=== PATIENT | female | born 1970 | race Caucasian/White ===

== ENCOUNTER 2016-04-22 21:37 | Emergency (ER) ==
[2016-04-22 22:03] VITALS: BP 113/70
== END 2016-04-22 22:44 | disposition left against medical advice (07) ==
LOC: P.ED 21:37
DX: R11.2 Nausea with vomiting, unspecified (principal); R19.7 Diarrhea, unspecified

== ENCOUNTER 2016-04-22 23:01 | Inpatient (IN) ==
--- NOTE | 2016-04-22 23:33 | PROVIDER DOCUMENTATION ---
Addendum entered and electronically signed by Jose De Jesus Warren Scribe 04/23/16 02:09 : Progress - CONSULTS/PCP/HOSPITALIST Notification #1 *Consult/PCP/Hospitalist*: DR BUSH Time Discussed: 02:08 Reason/Comments: DR ZACARIAS SPOKE WITH DR BUSH. DR BUSH WILL ADMIT. Consult Disposition: Admit Original Note: HPI-General Adult - General Chief Complaint: GI Bleed Stated Complaint: N/V/D, BLOOD IN STOOL Time Seen by Provider: 04/22/16 23:17 Source: patient Allergies/Adverse Reactions: Patient Allergies Allergy/AdvReac Type Severity Reaction Status Date / Time No Known Allergies Allergy Verified 04/22/16 22:09 Home Medications: Home Medication List Medication Instructions Recorded Confirmed Last Taken Type Ciprofloxacin HCl [Cipro] 500 mg PO BID 04/22/16 04/23/16 04/19/16 History Diphenoxylate/Atropine [Lomotil] 2.5 each PO Q6H PRN PRN 04/22/16 04/23/1604/22 09:00 History Hydrocodone Bit/Acetaminophen 1 each PO Q6H PRN PRN 04/22/16 04/23/16 04/22/16 21:00 History [Hydrocodon-Acetaminoph 7.5-325] Hyoscyamine [Levsin Drops] 0.125 mg PO DAILY 04/22/16 04/23/16 04/22/16 17:30 History Promethazine [Phenergan] 25 mg PO Q6H PRN PRN 04/22/16 04/23/16 04/22/16 14:30 History - History of Present Illness -Gen Adult Nature of Presenting Problems: 46 YOWF PRESENTS TO ED WITH C/O PT STATES N/V/D X 3 MONTHS. PT STATES LAST B/M WAS TODAY BROWN LOOKING BLOOD AND THEN BRIGHT RED BLOOD. PT STATES N/V OF BILE. PT STATES NO BLOOD PRODUCTS DUE TO ROMAN CATHOLIC. Location of Pain/Injury: reports: abdomen (EPIGASTRIC AND LLQ) Pain Radiation: reports: epigastric Quality of Pain: reports: aching Severity: reports: moderate Onset/Duration: reports: other (3 MONTHS) Timing: reports: still present Context/Activities at Onset: reports: light activity Modifying Factors: improves with: nothing Associated Symptoms: reports: nausea, vomiting Similar Symptoms Previously?: No Recently seen or treated by another doctor?: No Review of Systems - Adult - REVIEW OF SYSTEMS - ADULT Constitutional: denies: chills, fever Eyes: reports: no symptoms reported Ears, Nose, Mouth & Throat: reports: no symptoms reported Cardiovascular: denies: chest pain, palpitations, syncope Respiratory: denies: cough, shortness of breath, wheezing Gastrointestinal: reports: abdominal pain, diarrhea, nausea, rectal bleeding, vomiting Genitourinary: reports: no symptoms reported Musculoskeletal: denies: back pain, neck pain Integumentary: reports: no symptoms reported Neurological: denies: dizziness/vertigo, headache/migraines, syncope Psychiatric: reports: no symptoms reported Endocrine: reports: no symptoms reported Hematologic/Lymphatic: reports: no symptoms reported Allergic/Immunologic: reports: no symptoms reported All Other Systems: Reviewed and Negative Past History - Adult - PAST MEDICAL HISTORY-ADULT Review of Records: reports: Nursing Assessment Review, Medications Reviewed - IMMUNIZATION STATUS Childhood Immunizations: See Nurse Assessment Flu Vaccine: See Nurse Assessment - SOCIAL HISTORY Smoking: quit greater than 1 year, cigarettes Substance Use: denies Alcohol Use Frequency: never Living Situation: family Physical Exam-General - CONSTITUTIONAL General Appearance: alert, moderate distress - EYES Eyes: PERRL/EOMI, pink conjunctivae - HEAD, EARS, NOSE, MOUTH & THROAT HENMT: normocephalic/atraumatic, other (DRY MUCOUS MEMBRANES) - NECK Neck: non-tender, full range of motion, supple - RESPIRATORY Respiratory: chest non-tender, lungs clear, normal breath sounds - CARDIOVASCULAR Cardiovascular: normal peripheral pulses, tachycardia - GASTROINTESTINAL (ABDOMEN) Abdominal Exam: normal bowel sounds, soft, tenderness (LLQ) - LYMPHATIC Lymphatic: no adenopathy - MUSCULOSKELETAL Back Exam: normal inspection, no CVA tenderness, no vertebral tenderness Extremity: normal range of motion, non-tender - SKIN Integumentary: normal color, normal turgor, warm/dry - NEUROLOGIC Neurologic: grossly normal - PSYCHIATRIC Psych/Mental Status: oriented x 3 Progress - PLAN OF CARE/RESULTS Progress/Plan/Lab Results: Laboratory Tests 04/22/16 04/22/16 04/22/16 23:17 23:17 23:17 WBC 16.41 H RBC 4.61 Hgb 13.3 Hct 39.1 MCV 84.8 MCH 28.9 MCHC 34.0 RDW Std Deviation 12.8 Plt Count 469 H MPV 8.6 Immature Gran % (Auto) 0.9 H Neut % (Auto) 64.2 Lymph % (Auto) 14.7 L [place] % (Auto) 12.4 H Eos % (Auto) 7.2 Baso % (Auto) 0.6 Immature Gran # (Auto) 0.14 H Neut # (Auto) 10.53 H Lymph # (Auto) 2.42 [place] # (Auto) 2.04 H Eos # (Auto) 1.18 H Baso # (Auto) 0.10 PT 12.4 H INR 1.22 PTT (Actin FS) 30.6 Sodium 135 L Potassium 3.4 L Chloride 95 L Carbon Dioxide 26 Anion Gap 14 BUN 4 L Creatinine 0.6 Estimated GFR/1.73 m2 > 60 BUN/Creatinine Ratio 7 Glucose 124 H Calculated Osmolality 268 Calcium 7.7 L Total Bilirubin 0.48 AST 8 L ALT 6 L Alkaline Phosphatase 94 Total Protein 5.5 L Albumin 2.2 L Globulin 3.3 Albumin/Globulin Ratio 0.7 Orders Category Date Time Status Orthostatic Vital Signs NOW Care 04/22/16 23:18 Active Saline Loc DIRECTED Care 04/22/16 23:18 Active Vital Signs Order Q15M Care 04/22/16 23:[address] ABD/PELVIS W/ IV CONT ONLY [CT] Stat Exams 04/22/16 23:19 Ordered C DIFF TOXIN [STOOL] Stat Lab 04/22/16 23:28 Uncollected CBC WITH DIFF [HEME] Stat Lab 04/22/16 23:17 Completed CMP [COMPREHENSIVE METABOLIC PANEL] [CHEM] Stat Lab 04/22/16 23:17 Completed OCCULT BLOOD NON-FECES Stat Lab 04/22/16 23:18 Uncollected OCCULT BLOOD SCREENING [STOOL] Stat Lab 04/22/16 23:18 Uncollected PROTIME WITH INR [COAG] Stat Lab 04/22/16 23:17 Completed PTT [COAG] Stat Lab 04/22/16 23:17 Completed STOOL CULTURE [RM] Stat Lab 04/22/16 23:28 Uncollected TYPE & SCREEN [BBK] Stat Lab 04/22/16 23:17 Received 0.9% Sodium Chloride Inj [Ns] 1,000 ml Med 04/23/16 00:19 Active IV 999 mls/hr Hydromorphone [Dilaudid] Med 04/23/16 00:31 Discontinued 1 mg IV NOW ONE Ondansetron [Zofran] Med 04/23/16 00:31 Discontinued 4 mg IV NOW ONE Telemetry [OM.EQ] Routine Oth 04/22/16 23:18 Active Vital Signs - 24 hr 04/22/16 23:07 Temperature 98.4 F Pulse Rate 132 H Respiratory 18 Rate Blood Pressure 111/62 O2 Sat by Pulse 98 Oximetry - CT/MRI 1 CT Study: Abdomen, Pelvis CT Results: COLITIS Departure - Departure Time of Disposition Order: 01:35 DIAGNOSIS: Colitis, Lower GI bleed Abdominal pain Qualifiers: Abdominal location: unspecified location Qualified Code(s): R10.9 - Unspecified abdominal pain Disposition: ADMITTED INPATIENT 09 Certified Medical Emergency: Emergent Condition: Stable Additional Instructions: ED Follow Up Instructions: You have been treated by a care provider in the Emergency Department. These instructions are being provided to you so you can have an understanding of how to care for yourself upon discharge. Upon discharge from the Emergency Department, you are responsible for making arrangements for follow-up care by a physician of your choice. Take all prescribed medications as directed. Return to the Emergency Department immediately for any new or worsening symptoms. You may call the Physician Referral phone number at [phone] to obtain a list of Physicians who are taking new patients. Attestation - Scribe Verification/Attestation Scribe:: Jose De Jesus Warren Acting as Scribe for:: Jamie Zacarias Scribe documention review:: This chart was documented by a scribe and accurately reflects the service the provider performed and the decisions made by the provider.
[2016-04-23 00:07] LABS: BASO% 0.6 % (0.0-0.8); EOS# 1.18 X1000 (0.0-0.7); EOS% 7.2 % (0.0-10.0); HEMATOCRIT 39.1 % (37.0-47.0); HEMOGLOBIN 13.3 g/dL (12.0-16.0); IMM GRAN# 0.14 X1000 (0.0-0.04); IMM GRAN% 0.9 % (0.0-0.5); LYMPH# 2.42 X1000 (1.2-3.4); LYMPH% 14.7 % (20.5-51.1); MANUAL DIFF NEEDED? NO; MCH 28.9 PG (27-31); MCV 84.8 FL (81-99); MONO# 2.04 X1000 (0.11-0.59); MONO% 12.4 % (1.7-9.3); MPV 8.6 FL (7.4-10.4); NEUT% 64.2 % (42.2-75.2); PLT 469 X1000 (130-400); RBC 4.61 XMIL (4.2-5.4)
[2016-04-23] MEDS ORDERED: NS 1,000 ML IV ONE ×2 (00:19→02:22)
[2016-04-23 00:24] LABS: INR 1.22; PROTIME 12.4 Seconds (9.2-11.7); PTT 30.6 Seconds (22.0-36.0)
[2016-04-23] MEDS ORDERED: ZOFRAN IV ONE (00:31)
[2016-04-23] MEDS ORDERED: DILAUDID IV ONE ×2 (00:31→17:20)
[2016-04-23 00:33] LABS: AGAP 14; ALBUMIN 2.2 g/dL (3.5-5.0); ALKALINE PHOSPHATASE 94 U/L (32-104); BUN 4 mg/dL (8-22); CALCIUM 7.7 mg/dL (8.8-10.2); CHLORIDE 95 mmol/L (98-107); COSMO 268; GOT 8 U/L (10-30); GPT 6 U/L (10-36); POTASSIUM 3.4 mmol/L (3.5-5.1); SODIUM 135 mmol/L (136-145); TCO2 26 mmol/L (25-35); TOTAL BILIRUBIN 0.48 mg/dL (0.20-1.00); TOTAL PROTEIN 5.5 g/dL (6.3-8.3)
[2016-04-23] MEDS ORDERED: LEVAQUIN 500 MG/D5W 100 ML IV ONE (01:02)
[2016-04-23] MEDS ORDERED: FLAGYL 500 MG/NS 100 ML IV ONE (01:02)
[2016-04-23] MEDS ORDERED: NS 1,000 ML ONE (02:17)
[2016-04-23] MEDS ORDERED: TYLENOL PO PRN (03:23)
[2016-04-23] MEDS ORDERED: MORPHINE IV PRN (03:23)
[2016-04-23] MEDS: NS 1,000 ML IV SCH ×2 (03:53→17:23)
[2016-04-23] MEDS: PROTONIX IV SCH (03:53)
[2016-04-23] MEDS: SODIUM CHLORIDE 0.9% INJ SCH (03:54)
[2016-04-23 04:08] LABS: BASO% 0.7 % (0.0-0.8); EOS# 1.19 X1000 (0.0-0.7); EOS% 8.6 % (0.0-10.0); HEMATOCRIT 33.8 % (37.0-47.0); HEMOGLOBIN 11.2 g/dL (12.0-16.0); IMM GRAN# 0.15 X1000 (0.0-0.04); IMM GRAN% 1.1 % (0.0-0.5); MANUAL DIFF NEEDED? YES; MCH 28.6 PG (27-31); MCHC 33.1 g/dL (33-37); MCV 86.2 FL (81-99); MONO# 1.63 X1000 (0.11-0.59); MONO% 11.8 % (1.7-9.3); MPV 8.3 FL (7.4-10.4); NEUT% 61.8 % (42.2-75.2); PLT 351 X1000 (130-400); RBC 3.92 XMIL (4.2-5.4)
[2016-04-23 04:15] LABS: BANDS 6 % (0-1); EOS 4 % (1-10); LYMPHS 14 % (21-51); MONO 10 % (1-9)
[2016-04-23] MEDS ORDERED: POTASSIUM CHLORIDE 20 MEQ/SWI 100 ML IV ONE ×2 (04:17→04:35)
[2016-04-23 04:21] LABS: AGAP 9; BUN 3 mg/dL (8-22); CALCIUM 6.9 mg/dL (8.8-10.2); CHLORIDE 101 mmol/L (98-107); COSMO 269; MAGNESIUM 1.6 mg/dL (1.5-2.7); POTASSIUM 3.3 mmol/L (3.5-5.1); SODIUM 136 mmol/L (136-145); TCO2 26 mmol/L (25-35)
[2016-04-23] MEDS ORDERED: POTASSIUM CHLORIDE 40 MEQ/SWI 100 ML IV ONE (04:34)
[2016-04-23] MEDS ORDERED: POTASSIUM CHLORIDE 20 MEQ/SWI 100 ML IV SCH (04:45)
[2016-04-23 05:13] LABS: URINE CULTURE NEEDED? NO; URINE MICRO REVIEW NEEDED? NO; URINE SOURCE CLEAN CATCH
[2016-04-23 05:15] LABS: BILIRUBIN URINE NEGATIVE (NEGATIVE); BLOOD URINE NEGATIVE (NEGATIVE); COLOR YELLOW; GLUCOSE URINE NEGATIVE (NEGATIVE); LEUKOCYTES URINE NEGATIVE (NEGATIVE); NITRITE URINE NEGATIVE (NEGATIVE); PH URINE 6.5; PROTEIN URINE NEGATIVE (NEGATIVE); SP GRAVITY URINE 1.041; TURBIDITY URINE CLEAR (CLEAR); UR EPITHELIAL CELLS <10 /HPF (<10); URINE BACTERIA NEGATIVE /HPF; URINE RBC <10 /HPF (<10); URINE WBC <10 /HPF (<10); UROBILINOGEN URINE NORMAL (NORMAL)
--- NOTE | 2016-04-23 06:41 | Diag Imaging Result Document ---
PROCEDURE NAME: CT ABD/PELVIS W/ IV CONT ONLY - 04/22/2016 CT ABDOMEN AND PELVIS WITH INTRAVENOUS CONTRAST. DOSE REDUCTION PROTOCOL. FINDINGS: The lower lungs are clear. Normal spleen, pancreas, adrenal glands, and gallbladder. There is fatty infiltration of the liver. Normal enhancement of the kidneys. No hydronephrosis. Normal aorta. There are several small para-aortic and paracaval lymph nodes. There is colonic wall thickening with pericolonic inflammation from the hepatic flexure continuing through the sigmoid colon into the anus. No free air. No abscess. Normal appendix. Mild thickening to the cecum although a portion of the ascending colon is not involved. Normal uterus. The left ovary is enlarged measuring approximately 4.1 x 5.8 cm and may contain a cyst measuring up to 3.5 cm. There is a tiny amount of free fluid in the pelvis. The urinary bladder is moderately distended and appears normal. IMPRESSION: 1. Colitis. 2. Enlarged left ovary. 3. Fatty infiltration of the liver. 4. Mildly prominent para-aortic lymph nodes. A preliminary report was given at 1:17 a.m. A typo on the preliminary report should have read splenic and hepatic granuloma. [facility]
--- NOTE | 2016-04-23 09:40 | HISTORY AND PHYSICAL ---
DATE AND TIME OF HISTORY AND PHYSICAL: April 23, 2016 at 0230. CHIEF COMPLAINT: Abdominal pain with nausea, vomiting, diarrhea. HISTORY OF PRESENT ILLNESS: Ms. Echols is a 46-year-old female who presents to the ER [facility] with complaints of abdominal pain with nausea and vomiting and bloody diarrhea for 3 months. The patient reports since January of 2016 that she has been having these symptoms and has been treated on 2 to 3 different occasions with antibiotics by physicians at [facility]. Patient reports that she does not have a primary care physician though has been seen by the surgeon, Dr. Gaona, at [facility] who did mention that he was planning to do a colonoscopy on her. Patient has taken most recently antibiotics of Levaquin and Cipro for treatment of her symptoms as well as most recently with Cipro for a diagnosed urinary tract infection. The patient does state that she has not been able to tolerate the Cipro orally. She reports that she has been having loose stools with loose, bloody stools for 3 months. She reports that the blood ranges in color from dark red to bright red at times. She describes her abdominal pain as constant and a gnawing type pain. She reports that drinking water makes it worse and that only pain medicines improve it. The patient denies any bloody or coffee ground emesis. She does report that she has had a low-grade fever at home with the highest reading at 100.5. She also reports that she generally just has not felt well. She denies any headache, dizziness, chest pain, shortness of breath, dysuria, or urinary frequency. She denies any pain, numbness, or tingling in extremities. Upon evaluation in the ER, the patient was found to have an elevated white blood cell count of 16.4. Given her history and current symptoms, a CT abdomen and pelvis was performed which showed moderate colonic wall thickening consistent with colitis. At this time, we will admit the patient for further treatment and evaluation of her colitis. REVIEW OF SYSTEMS: A 14-point review of systems was conducted with the patient and all were negative except for pertinent positives mentioned in above HPI. PAST MEDICAL HISTORY: Other than the patient's recent problems with her abdominal pain and nausea, vomiting, and diarrhea, she denies any past medical history. PAST SURGICAL HISTORY: Tonsillectomy. SOCIAL HISTORY: The patient reports that she is a former smoker and smoked from approximately the age of a teenager until she was 31. During this time she smoked approximately 2 packs per day. She denies any alcohol or illicit drug use. FAMILY HISTORY: The patient reports that there is a family history of diabetes though no other known medical problems. ALLERGIES: No known allergies. HOME MEDICATIONS: 1. Phenergan 25 mg p.o. q.6 hours p.r.n. 2. Levsin drops 0.125 mg p.o. daily. 3. Bosler 7.5 mg 1 p.o. q.6 hours p.r.n. for pain. 4. Lomotil 1 p.o. q.6 hours p.r.n. 5. Cipro 500 mg p.o. b.i.d. DIAGNOSTIC DATA: Laboratory results: White blood cell count 16.4, hemoglobin 13.3, hematocrit 39.1, platelet count 469. PT 12.4. INR 1.2. PTT 30.6. Sodium 135. Potassium 3.4. Chloride 95. Bicarbonate 26. BUN 4. Creatinine 0.6. Glucose 124. Calcium 7.7. Magnesium 1.6. Total bilirubin is 0.48. AST 8. ALT 6. Alkaline phosphatase 94. Albumin 2.2. CT abdomen and pelvis with IV contrast showed moderate colonic wall thickening consistent with colitis. Abnormal appearance of the left ovary, recommended comparison to previous or followup pelvic ultrasound was recommended. PHYSICAL EXAMINATION: VITAL SIGNS: Temperature 98.1, heart rate 95, respirations 15, blood pressure 116/67, oxygen saturation is 100% room air. GENERAL: Ms. Echols is a well-nourished, well-developed, pleasant 46-year-old female who is resting in the ER stretcher. She is in no acute distress, is awake, alert, and able to answer all questions appropriately. HEENT: Head is atraumatic, normocephalic. Pupils are equal, round, reactive to light, are 3 mm bilaterally and brisk. Subconjunctivae were slightly pale. Oral mucosa is moist. Oropharynx was clear. There were some white plaques noted to the patient's tongue as well as buccal mucosa. This was mild though it does appear that there is some oral candidiasis present. NECK: Supple. Trachea is midline. CARDIOVASCULAR: Patient has a normal S1, S2. No murmurs, gallops, or rubs appreciated with a sounds are clear to auscultation in bilateral soft upon palpation. noted upon palpation. MUSCULOSKELETAL: Patient has good range of motion in all noted. Pulse, motor, and sensory were intact in all extremities as well. Pedal pulses were 3 plus slightly pale lesions or sores noted. The patient did have decreased skin turgor noted. time and situation. Cranial nerves II through XII are grossly intact. ASSESSMENT: other infectious versus noninfectious for infectious process we will continue to rule out we have ordered stool studies and are awaiting those results at this time go ahead and place the patient on Flagyl 500 mg IV q.8 noninfectious. We will continue to rule out disease as well as inflammatory bowel disease. as well as CRP as well and are awaiting those results at this time. appreciate her evaluation and recommendation we have not been able to collect a we will hemodynamic status closely we will hold all anticoagulants and continue to follow. Fluid volume depletion. We will continue with fluid resuscitation with normal at 100 mL per hour times 2 L and continue to follow. Nausea, vomiting, diarrhea. We will treat the patient with Zofran for her nausea and vomiting and as previously mentioned we have ordered stool studies for further evaluation of her reported diarrhea. Oral candidiasis. For this, we have placed an order for nystatin suspension. The patient will be placed on the medical floor with telemetry. She will have vital signs q.6 h. She will have strict intake and output q.8 h. DVT prophylaxis will be provided with SCDs. GI prophylaxis will be provided with Protonix 40 mg IV q.[address] her on a clear liquid diet. We will repeat a CBC and BMP in the morning. The patient's potassium was slightly low at 3.4. We will give her IV potassium 20 mEq times 1 dose and we will reevaluate her potassium level. Further orders and recommendations pending hospital course, diagnostic studies, and physician evaluation. Dictated by NASIM Santos for John Ahuja MD
[2016-04-23] MEDS: FLAGYL 500 MG/NS 100 ML IV SCH ×2 (11:11→17:05)
[2016-04-23] MEDS: MYCOSTATIN SUSP PO SCH ×2 (11:22→18:13)
[2016-04-23] MEDS ORDERED: PREPARATION H SUPPOSITORY PR ONE (16:19)
[2016-04-24] MEDS: MYCOSTATIN SUSP PO SCH ×6 (00:36→21:16)
[2016-04-24] MEDS: FLAGYL 500 MG/NS 100 ML IV SCH ×3 (01:56→17:07)
[2016-04-24] MEDS: DILAUDID IV PRN ×3 (01:56→15:08)
[2016-04-24] MEDS: PROTONIX IV SCH (03:17)
[2016-04-24] MEDS: SODIUM CHLORIDE 0.9% INJ SCH (03:18)
[2016-04-24 07:23] LABS: BASO% 0.6 % (0.0-0.8); EOS# 1.26 X1000 (0.0-0.7); EOS% 10.1 % (0.0-10.0); HEMATOCRIT 30.6 % (37.0-47.0); HEMOGLOBIN 9.9 g/dL (12.0-16.0); IMM GRAN# 0.15 X1000 (0.0-0.04); IMM GRAN% 1.2 % (0.0-0.5); LYMPH# 1.94 X1000 (1.2-3.4); LYMPH% 15.6 % (20.5-51.1); MANUAL DIFF NEEDED? YES; MCH 28.2 PG (27-31); MCHC 32.4 g/dL (33-37); MCV 87.2 FL (81-99); MONO# 1.53 X1000 (0.11-0.59); MONO% 12.3 % (1.7-9.3); MPV 8.3 FL (7.4-10.4); NEUT% 60.2 % (42.2-75.2); PLT 343 X1000 (130-400); RBC 3.51 XMIL (4.2-5.4)
[2016-04-24 07:43] LABS: AGAP 9; ALBUMIN 1.5 g/dL (3.5-5.0); ALKALINE PHOSPHATASE 69 U/L (32-104); BUN 3 mg/dL (8-22); CALCIUM 7.6 mg/dL (8.8-10.2); CHLORIDE 100 mmol/L (98-107); COSMO 265; GOT 8 U/L (10-30); POTASSIUM 3.2 mmol/L (3.5-5.1); SODIUM 134 mmol/L (136-145); TCO2 25 mmol/L (25-35); TOTAL BILIRUBIN 0.31 mg/dL (0.20-1.00)
[2016-04-24 07:44] LABS: GPT < 5 U/L (10-36)
[2016-04-24 07:54] LABS: BANDS 24 % (0-1); EOS 2 % (1-10); LYMPHS 12 % (21-51); MONO 8 % (1-9)
[2016-04-24] MEDS ORDERED: PREPARATION H OINT TOP PRN (08:40)
[2016-04-24] MEDS: KLOR-CON PO ONE ×2 (09:44→09:58)
[2016-04-24] MEDS ORDERED: POTASSIUM CHLORIDE 20% LIQUID PO ONE (10:00)
[2016-04-24] MEDS: ZOFRAN IV PRN (14:09)
--- NOTE | 2016-04-24 14:48 | PROGRESS NOTE ---
DATE: 04/24/2016 SUBJECTIVE: This patient states that she is still having diarrhea, about 3 episodes today, and abdominal pain. She denies nausea and vomiting. No fever. No chills. The potassium is low, and I will replace the potassium. For now, I will keep this patient with liquid diet. OBJECTIVE: Vital Signs: Temperature 97.5 degrees, pulse 85, respiratory rate 18, blood pressure 96/59, O2 saturation 97% on room air. HEENT: Head normocephalic. No trauma. PERRLA. Neck: Supple. No JVD. No masses. Central trachea. Chest clear to auscultation. No wheezing. No rales. Cardiovascular: RRR. No murmurs. Abdomen is soft. Mild generalized tenderness. No rebound. Positive bowel sounds. Extremities: No edema. No clubbing. No cyanosis. Neurologic: The patient is alert, oriented x3. No focal neurological deficits. LABORATORY: WBC 12.4, hemoglobin 9.9, hematocrit 30.6, platelets 343,000. Bands 24. Sodium 134, potassium 3.2, chloride 100, bicarbonate 25. BUN 3, creatinine 0.5, glucose 105. Calcium 7.6. AST 8. ALT less than 5. Alkaline phosphatase 69. Albumin 1.5. ASSESSMENT AND PLAN: 1. Colitis. For now, we will continue with Flagyl. Apparently, this patient has been getting multiple times treatment with quinolone. We will wait for Gastroenterology Department for their recommendations. Probably, this patient has to be scoped. 2. Dehydration. I will continue with IV fluids. She looks hydrated today. 3. Nausea and vomiting. She is not having any nausea or vomiting at this moment. We will continue with the same management. 4. Diarrhea. This patient has been having diarrhea during this hospitalization. Today, she had 3 BMs. Will continue to monitor. 5. Hypokalemia. I will replace the potassium. 6. Normocytic anemia, probably multifactorial secondary to a chronic disease and blood loss. I will ask for anemia workup. 7. Hyperglycemia. This patient does not have a history of diabetes; will continue to monitor. Overall, this patient is doing a little bit better. She is still complaining of diarrhea, but she has been having diarrhea for the past 3-4 months. I am not sure about blood in the stools. Pending Gastroenterology evaluation.
[2016-04-24] MEDS ORDERED: MONISTAT-DERM 2% CREAM TOP ONE (15:35)
[2016-04-25] MEDS: FLAGYL 500 MG/NS 100 ML IV SCH ×3 (01:01→18:11)
[2016-04-25] MEDS: SODIUM CHLORIDE 0.9% INJ SCH (03:05)
[2016-04-25] MEDS: PROTONIX IV SCH (03:05)
[2016-04-25 07:40] LABS: BASO% 0.7 % (0.0-0.8); EOS# 1.44 X1000 (0.0-0.7); EOS% 11.3 % (0.0-10.0); HEMOGLOBIN 10.5 g/dL (12.0-16.0); IMM GRAN# 0.27 X1000 (0.0-0.04); IMM GRAN% 2.1 % (0.0-0.5); LYMPH# 1.92 X1000 (1.2-3.4); LYMPH% 15.1 % (20.5-51.1); MANUAL DIFF NEEDED? YES; MCH 28.5 PG (27-31); MCHC 32.8 g/dL (33-37); MCV 86.7 FL (81-99); MONO# 1.36 X1000 (0.11-0.59); MONO% 10.7 % (1.7-9.3); MPV 8.5 FL (7.4-10.4); NEUT% 60.1 % (42.2-75.2); PLT 379 X1000 (130-400); RBC 3.69 XMIL (4.2-5.4)
[2016-04-25 08:10] LABS: AGAP 7; ALBUMIN 1.6 g/dL (3.5-5.0); ALKALINE PHOSPHATASE 75 U/L (32-104); BUN 5 mg/dL (8-22); CALCIUM 7.3 mg/dL (8.8-10.2); CHLORIDE 101 mmol/L (98-107); COSMO 266; GOT 7 U/L (10-30); GPT 6 U/L (10-36); IRON SATURATION 30 %; POTASSIUM 3.8 mmol/L (3.5-5.1); SODIUM 134 mmol/L (136-145); TCO2 26 mmol/L (25-35); TIBC 82 ug/dL; TOTAL BILIRUBIN 0.27 mg/dL (0.20-1.00); TOTAL IRON 25 ug/dL (49-151); TOTAL PROTEIN 4.1 g/dL (6.3-8.3); UNBOUND IRON 57 ug/dL (112-346)
[2016-04-25 08:13] LABS: EOS 7 % (1-10); LYMPHS 12 % (21-51); MONO 1 % (1-9)
[2016-04-25 08:36] LABS: FERRITIN 213 ng/mL (13-150)
[2016-04-25] MEDS: MYCOSTATIN SUSP PO SCH ×4 (09:08→21:15)
[2016-04-25] MEDS: ZOFRAN IV PRN ×3 (13:14→23:17)
[2016-04-25] MEDS: FOLIC ACID PO SCH (13:14)
--- NOTE | 2016-04-25 13:27 | PROGRESS NOTE ---
DATE: 04/25/2016 SUBJECTIVE: This patient states that she is feeling better. She is not complaining about pain, nausea or vomiting at this moment. She is tolerating liquids. Gastroenterology Department evaluated this patient, and apparently they will perform endoscopy tomorrow. OBJECTIVE: Vital signs: Temperature is 98.1, pulse 82, respiratory rate 16, blood pressure 98/59, oxygen saturation is 98% on room air. HEENT: Head is normocephalic and atraumatic. PERRLA. Neck: Supple. No JVD. No masses. Central trachea. Chest: Clear to auscultation. No wheezing or rales. Cardiovascular: Regular rate and rhythm. No murmurs. Abdomen: Soft. Mild generalized tenderness. No rebound. Positive bowel sounds. Extremities: No edema, no clubbing, no cyanosis. Neurologic: The patient is alert and oriented x3. No focal neurological deficits. DIAGNOSTIC DATA: WBC is 12.7, hemoglobin 10.5, hematocrit 32, platelets 379. Sodium is 134, potassium 3.8, chloride 101, bicarbonate 26, BUN is 5, creatinine 0.5, glucose 104, calcium 7.3. Vitamin B12 is 1354, folate 8. ASSESSMENT AND PLAN: 1. Colitis. For now, I will continue with Flagyl. This patient has been evaluated by the Gastroenterology Department. Probably she will have an endoscopy done tomorrow. 2. Dehydration. Resolved. Continue with IV fluids. 3. Nausea and vomiting. She is not complaining of nausea or vomiting at this moment. We will continue with p.r.n. medication. 4. Diarrhea. This is getting better. Continue to monitor. 5. Folate deficiency. I will put this patient on folic acid. 6. Normocytic anemia. This patient has folic acid deficiency, and also she has chronic disease and blood loss. I will continue to monitor. Stable. 7. Hyperglycemia. She does not have history of diabetes. We will continue to monitor.
[2016-04-25] MEDS: DILAUDID IV PRN ×3 (13:50→23:16)
[2016-04-25] MEDS: NS 1,000 ML IV SCH (16:13)
--- NOTE | 2016-04-25 17:49 | PROGRESS NOTE ---
DATE: 04/25/2016 SUBJECTIVE: Patient says she is feeling slightly better. No nausea, but still has abdominal cramps as soon as she takes anything by mouth. Still has some diarrhea. OBJECTIVE: Vital signs: Temperature 98 degrees, heart rate 90, respirations 15, blood pressure /60, O2 saturation 100% on room air. General: Well-built, well-nourished. HEENT: Mild conjunctival pallor present. No scleral icterus. Neck: Supple. Trachea midline. Heart: Normal. Lungs: Normal. Abdomen: Mildly tender with no rebound or rigidity. Extremities: Unremarkable. IDENTITY MANAGEMENT DEVELOPER: No neurological deficit. IMPRESSION: 1. Colitis, rule out inflammatory bowel disease versus infectious. 2. Oral candidiasis. 3. Mild dehydration which is corrected. PLAN: We will put her on clear liquids later and GoLYTELY prep and set her up for colonoscopy and possible esophagogastroduodenoscopy tomorrow because she has some upper gastrointestinal issues which may be related to colitis, but she wants that to be checked, too.
[2016-04-25] MEDS ORDERED: GOLYTELY PO ONE (18:00)
--- NOTE | 2016-04-25 21:32 | CONSULTATION ---
DATE OF CONSULTATION: 04/24/2016 REASON FOR CONSULTATION: Colitis. HISTORY OF PRESENT ILLNESS: A 46-year-old otherwise healthy lady is having problems since beginning of December, initially started as a diarrhea, later on turned into more recently bloody stools. She has seen Dr. Gaona who thought he would do a colonoscopy but did not get anything scheduled. She did have some Cipro for that, continued to have problem and she had a low-grade fever. PAST MEDICAL HISTORY: None. PAST SURGICAL HISTORY: Tonsillectomy. SOCIAL: She was a former smoker, but stopped about 17 years ago. Does not drink. No illegal drugs. FAMILY HISTORY: No history of inflammatory bowel disease. ALLERGIES: None. REVIEW OF SYSTEMS: Fourteen point review is negative other than what is in HPI. HOME MEDICATION: Phenergan 25 mg. Levsin 0.125. [place] 7.5 p.r.n. Lomotil. Cipro 500 b.i.d. PERTINENT DATA: White count 16.4, hemoglobin 13.3, hematocrit 39, platelets 469,000. PT PTT normal. Sodium 135, potassium 3.4, magnesium low at 1.6, LFTs are normal. CT of the abdomen showed colitis starting from the hepatic flexure. There is some type typhlitis or inflammation of the cecum. PHYSICAL EXAMINATION: General: Reveals this healthy-looking lady, appeared to be in no distress, but wants some answers. Vital signs: Temperature 98 degrees, heart rate 90, respirations 15, blood pressure 116/67, O2 saturation 100%. General: Well nourished, well developed, pleasant lady, no scleral icterus. Minimal conjunctival pallor. Neck: Supple. Trachea midline. Heart: Normal first and second heart sounds. Lungs: Clear. Abdomen: Diffusely tender on deep palpation. No guarding, rebound or rigidity. Extremities: Unremarkable. Neurological: No problems. IMPRESSION: 1. Subacute to chronic colitis, most likely inflammatory bowel disease. The patient was treated with Cipro with no response. She was added Flagyl here. 2. Volume depletion. 3. Nausea and vomiting, probably secondary to colitis. 4. Oral candidiasis from antibiotics. PLAN: Continue the antibiotics, deep venous thrombosis prophylaxis, gastrointestinal prophylaxis with Protonix and antibiotics for now. We will proceed with colonoscopy. It will probably test and turn up technician to be inflammatory bowel disease. She also has slightly low folate which will be replaced.
[2016-04-26] MEDS: FLAGYL 500 MG/NS 100 ML IV SCH ×3 (01:46→21:48)
[2016-04-26] MEDS: NS 1,000 ML IV SCH ×4 (04:19→15:00)
[2016-04-26] MEDS: PROTONIX IV SCH (05:03)
[2016-04-26] MEDS: SODIUM CHLORIDE 0.9% INJ SCH (05:03)
[2016-04-26 07:47] LABS: BASO% 0.9 % (0.0-0.8); EOS# 1.32 X1000 (0.0-0.7); EOS% 9.6 % (0.0-10.0); HEMATOCRIT 31.6 % (37.0-47.0); HEMOGLOBIN 10.4 g/dL (12.0-16.0); IMM GRAN# 0.42 X1000 (0.0-0.04); IMM GRAN% 3.1 % (0.0-0.5); MANUAL DIFF NEEDED? YES; MCH 28.6 PG (27-31); MCHC 32.9 g/dL (33-37); MCV 86.8 FL (81-99); MONO% 8.7 % (1.7-9.3); MPV 8.2 FL (7.4-10.4); NEUT% 61.7 % (42.2-75.2); PLT 371 X1000 (130-400); RBC 3.64 XMIL (4.2-5.4)
[2016-04-26 08:08] LABS: AGAP 9; BUN 4 mg/dL (8-22); CALCIUM 7.2 mg/dL (8.8-10.2); CHLORIDE 101 mmol/L (98-107); COSMO 267; POTASSIUM 3.8 mmol/L (3.5-5.1); SODIUM 135 mmol/L (136-145); TCO2 25 mmol/L (25-35)
[2016-04-26 08:51] LABS: BANDS 14 % (0-1); EOS 6 % (1-10); LYMPHS 16 % (21-51)
[2016-04-26] MEDS ORDERED: MYLICON DROPS (DOSE) MISC ONE ×2 (10:30→10:40)
[2016-04-26] MEDS ORDERED: DIPRIVAN 1% 50 ML ONE (11:37)
[2016-04-26] MEDS ORDERED: FENTANYL ONE (11:37)
[2016-04-26] MEDS ORDERED: XYLOCAINE-MPF 2% ONE (11:48)
[2016-04-26] MEDS ORDERED: ROBINUL ONE (11:48)
[2016-04-26] MEDS ORDERED: ZOFRAN ONE (11:48)
[2016-04-26] MEDS: FOLIC ACID PO SCH (12:53)
[2016-04-26] MEDS: SOLU-MEDROL IV SCH ×2 (12:56→21:48)
[2016-04-26] MEDS: MYCOSTATIN SUSP PO SCH ×4 (12:58→21:48)
[2016-04-26] MEDS: LEVAQUIN 500 MG/D5W 100 ML IV SCH (14:58)
--- NOTE | 2016-04-26 16:48 | PROGRESS NOTE ---
DATE: 04/26/2016 SUBJECTIVE: This patient states that she is feeling better. The abdominal pain also is better. She is scheduled today for an endoscopy. She is NPO. OBJECTIVE: Vital Signs: Temperature 98.6 degrees, pulse 83, respiratory rate 16, blood pressure 105/64, oxygen saturation 98 on room air. HEENT: Head normocephalic. No trauma. PERRLA. Neck: Supple. No JVD. No masses. Central trachea. Chest: Clear to auscultation. No wheezing. No rales. Cardiovascular: RRR. No murmurs. Abdomen: Soft. Mild generalized tenderness. No rebound. Positive bowel sounds. Extremities: No edema. No clubbing. No cyanosis. Neurological: The patient is alert and oriented x3. No focal neurological deficits. LABORATORY: WBC 13.7, hemoglobin 10.4, hematocrit 34.6, platelets 371,000, bands 14. Sodium 135, potassium 3.8, chloride 101, bicarbonate 25, BUN 4, creatinine 0.5, glucose 90, calcium 7.2. ASSESSMENT AND PLAN: 1. Colitis. This patient has been on Flagyl. She has been evaluated by the gunsmith apprentice and she is getting endoscopy today. 2. Gastrointestinal bleed. As above. This patient has been evaluated by gastroenterology department. Hemoglobin and hematocrit have been stable. They will scope this patient today. 3. Nausea and vomiting. She is not complaining of nausea or vomiting at this moment. We will continue with p.r.n. medication. 4. Dehydration, resolved. 5. Folate deficiency. This patient is on folic acid. 6. Normocytic anemia. This patient has folic acid deficiency. Also, she has chronic disease and probably blood loss. I will continue to monitor. Stable. 7. Hyperglycemia. No history of diabetes. The blood sugar has been stable.
--- NOTE | 2016-04-26 19:49 | OPERATIVE NOTE ---
PROCEDURE DATE: 04/26/2016 REQUESTING PHYSICIAN: Henok Goodrich MD PROCEDURE: 1. Esophagogastroduodenoscopy with biopsy of the stomach. 2. Colonoscopy with colonic biopsies. PREOPERATIVE DIAGNOSES: 1. Abdominal pain, generalized. 2. Rectal bleeding. 3. Evidence of colitis on the CT scan. 4. Reflux disease. 5. Ongoing abdominal pain, diarrhea blood in the stools since January 2016. POSTOPERATIVE DIAGNOSES: 1. Z-line visualized at 40 cm. 2. Erosive gastritis. 3. Normal duodenal bulb and second portion duodenum. 4. Normal fundus, cardia, incisura. 5. Burns colitis throughout the entire length of colon, severe degree with erythema, friability, erosions, ulcerations, suggestive of ulcerative colitis status post biopsy. ESTIMATED BLOOD LOSS: Minimal. COMPLICATIONS: None. ANESTHESIA: Monitored anesthesia care by anesthesiologist. SPECIMENS REMOVED: 1. Gastric random biopsies. 2. Random Colonic biopsy. DESCRIPTION OF PROCEDURE: After informed consent was obtained and the patient explained the risks, benefits, indications, alternatives, the patient was prepared for EGD and colonoscopy. The risks of infection, bleeding, pain, trauma to the surrounding structures, perforation, explained to the patient among others and she acknowledged understanding and agreed to proceed. The patient was brought to the OR, turned in the left position. A bite block was placed in patient's mouth and after adequate monitored anesthesia care, the scope was introduced into the oral vestibule advanced all the way to the second of duodenum. Esophagus normal in the entire length. Z-line at 40 cm. The scope was advanced into the stomach. Evidence of erythema, erosions, friability in the stomach, body, and antrum suggestive for erosive gastritis, this was biopsied. Retroflexion revealed normal fundus, cardia, incisura. The duodenal bulb and second portion of the duodenum appear normal. The scope was withdrawn from the stomach. The air was aspirated as the scope was withdrawn. The patient was turned around. Rectal exam was performed, which revealed maroon colored stools with brownish tinged and no masses felt. The colonoscope was introduced gently introduced through the anal verge all the way to the cecum. The cecum was identified using landmarks including IC valve. The entire colon was severely inflamed more so in the cecum and in transverse, descending and rectosigmoid region. Ascending colon has moderate inflammation, but the rest of the colon had severe inflammation. The mucosa showed evidence of erythema, friability, erosions, ulcerations and contact oozing. I biopsied it randomly to evaluate for ulcerative colitis and we collected stool to rule out any kind of super infections with any bacteria. Stool was sent for C. difficile culture, ova and parasites. We will also send her for lactoferrin. The air was aspirated as the scope withdrawn. The patient tolerated the procedure and is currently monitored in to the OR in stable condition. I discussed the findings with the patient on waking up and all questions answered. RECOMMENDATIONS: 1. The patient will be on Levaquin and Flagyl IV. 2. We will start her on Solu-Medrol 40 mg IV b.i.d. 3. We will check the [facility] IBD panel. 4. We will check the stool studies. 5. We will check the stool for lactoferrin level as well as start her on Protonix once daily for GI prophylaxis. The patient will need to follow up in the clinic in 2 weeks of discharge. At that time, we will discuss long-term treatment plans, based on pathology results. The patient was also counseled to avoid any NSAIDs or spicy foods and take bland diet. Further action pending the biopsy results. [facility] HOSPITALJustin
[2016-04-26] MEDS: ICAR-C PO SCH (21:48)
[2016-04-26] MEDS: CULTURELLE PO SCH (21:54)
[2016-04-27] MEDS: SODIUM CHLORIDE 0.9% INJ SCH (03:59)
[2016-04-27] MEDS: PROTONIX IV SCH (03:59)
[2016-04-27] MEDS: NS 1,000 ML IV SCH ×3 (04:00→16:58)
[2016-04-27] MEDS: FLAGYL 500 MG/NS 100 ML IV SCH ×3 (04:00→21:43)
[2016-04-27 07:16] LABS: BASO% 0.3 % (0.0-0.8); HEMATOCRIT 32.7 % (37.0-47.0); HEMOGLOBIN 10.7 g/dL (12.0-16.0); IMM GRAN# 0.73 X1000 (0.0-0.04); IMM GRAN% 4.2 % (0.0-0.5); LYMPH# 1.56 X1000 (1.2-3.4); MANUAL DIFF NEEDED? YES; MCH 28.2 PG (27-31); MCHC 32.7 g/dL (33-37); MCV 86.3 FL (81-99); MONO# 0.52 X1000 (0.11-0.59); MPV 8.4 FL (7.4-10.4); NEUT% 83.5 % (42.2-75.2); PLT 413 X1000 (130-400); RBC 3.79 XMIL (4.2-5.4)
[2016-04-27 07:46] LABS: AGAP 15; ALBUMIN 1.7 g/dL (3.5-5.0); ALKALINE PHOSPHATASE 67 U/L (32-104); BUN 4 mg/dL (8-22); CALCIUM 7.4 mg/dL (8.8-10.2); CHLORIDE 104 mmol/L (98-107); COSMO 273; GOT 8 U/L (10-30); POTASSIUM 3.9 mmol/L (3.5-5.1); SODIUM 138 mmol/L (136-145); TCO2 19 mmol/L (25-35); TOTAL BILIRUBIN 0.18 mg/dL (0.20-1.00); TOTAL PROTEIN 4.4 g/dL (6.3-8.3)
[2016-04-27 07:49] LABS: GPT < 5 U/L (10-36)
[2016-04-27 08:14] LABS: BANDS 20 % (0-1); LYMPHS 4 % (21-51)
[2016-04-27] MEDS: DILAUDID IV PRN (08:56)
[2016-04-27] MEDS: ZOFRAN IV PRN ×3 (08:56→22:01)
[2016-04-27] MEDS: SOLU-MEDROL IV SCH ×2 (11:44→21:39)
[2016-04-27] MEDS: MYCOSTATIN SUSP PO SCH ×4 (11:46→21:43)
[2016-04-27] MEDS: CENTRUM SILVER PO SCH (11:46)
[2016-04-27] MEDS: CULTURELLE PO SCH ×2 (11:47→21:39)
[2016-04-27] MEDS: FOLIC ACID PO SCH (11:47)
[2016-04-27] MEDS: ICAR-C PO SCH ×2 (11:47→21:39)
[2016-04-27] MEDS: LEVAQUIN 500 MG/D5W 100 ML IV SCH (11:51)
--- NOTE | 2016-04-27 16:25 | PROGRESS NOTE ---
DATE: 04/27/2016 SUBJECTIVE: This patient is status post endoscopy yesterday. She is feeling a little bit nauseated this morning but she is tolerating fluids. She is not complaining about chest pain or shortness of breath. She is tolerating p.o. OBJECTIVE: Vital Signs: Temperature 97.6 degrees, pulse 83, respiratory rate 20, blood pressure 115/64, oxygen saturation 95% on room air. HEENT: Head normocephalic. No trauma. PERRLA. Neck: Supple. No JVD. No masses. Central trachea. Chest: Clear to auscultation. No wheezing. No rales. Cardiovascular: RRR. No murmurs. Abdomen: Soft. Mild generalized tenderness. No rebound. Positive bowel sounds. Extremities: No edema. No clubbing. No cyanosis. Neurological: The patient is alert and oriented x3. No focal neurological deficits. LABORATORY: WBC 17.4, hemoglobin 10.7, hematocrit 32.7, platelets 413,000. Sodium 138, potassium 3.9, chloride 104, bicarbonate 19, BUN 4, creatinine 0.5, glucose 115, calcium 7.4, albumin. 1.7. ASSESSMENT AND PLAN: 1. Pancolitis. This patient is status post colonoscopy that showed pancolitis throughout the entire colon, severe degree with erythema, friability, erosion, ulceration, likely related to ulcer of the colitis; pending biopsies. This patient has been placed on levofloxacin and metronidazole. Also she is getting steroids. We will continue to monitor. Gastroenterology department is following this patient closely. 2. Erosive gastritis. Continue with PPIs. 3. Nausea and vomiting. Continue with supportive care, p.r.n. medication. 4. Dehydration, resolved. We will continue with IV fluids. 5. Folate deficiency. This patient is on folic acid. 6. Normocytic anemia. It looks chronic. Probably secondary to blood loss, folic acid deficiency, and chronic illness.
[2016-04-27] MEDS ORDERED: FLAGYL 500 MG/NS 100 ML IV SCH (17:00)
[2016-04-28] MEDS: ZOFRAN IV PRN ×2 (02:40→10:24)
[2016-04-28] MEDS: NS 1,000 ML IV SCH (04:46)
[2016-04-28] MEDS: FLAGYL 500 MG/NS 100 ML IV SCH ×3 (04:46→20:26)
[2016-04-28 07:38] LABS: BASO% 0.3 % (0.0-0.8); HEMATOCRIT 29.5 % (37.0-47.0); HEMOGLOBIN 9.7 g/dL (12.0-16.0); IMM GRAN# 0.76 X1000 (0.0-0.04); IMM GRAN% 4.3 % (0.0-0.5); LYMPH# 1.27 X1000 (1.2-3.4); LYMPH% 7.2 % (20.5-51.1); MANUAL DIFF NEEDED? YES; MCH 28.3 PG (27-31); MCHC 32.9 g/dL (33-37); MONO# 0.95 X1000 (0.11-0.59); MONO% 5.4 % (1.7-9.3); MPV 8.3 FL (7.4-10.4); NEUT% 82.8 % (42.2-75.2); PLT 376 X1000 (130-400); RBC 3.43 XMIL (4.2-5.4)
[2016-04-28 07:49] LABS: AGAP 7; BUN 5 mg/dL (8-22); CALCIUM 7.4 mg/dL (8.8-10.2); CHLORIDE 107 mmol/L (98-107); COSMO 274; POTASSIUM 4.1 mmol/L (3.5-5.1); SODIUM 137 mmol/L (136-145); TCO2 23 mmol/L (25-35)
[2016-04-28 07:57] LABS: BANDS 5 % (0-1); BASO 1 % (0-1); LYMPHS 7 % (21-51); MONO 3 % (1-9)
[2016-04-28] MEDS: CULTURELLE PO SCH ×2 (09:12→20:26)
[2016-04-28] MEDS: CENTRUM SILVER PO SCH (09:12)
[2016-04-28] MEDS: FOLIC ACID PO SCH (09:12)
[2016-04-28] MEDS: LEVAQUIN 500 MG/D5W 100 ML IV SCH (09:12)
[2016-04-28] MEDS: MYCOSTATIN SUSP PO SCH ×4 (09:14→20:27)
[2016-04-28] MEDS ORDERED: PREDNISONE PO ONE (09:24)
[2016-04-28] MEDS: ICAR-C PO SCH ×2 (10:30→20:26)
[2016-04-28] MEDS ORDERED: LASIX IV ONE (12:18)
--- NOTE | 2016-04-28 15:46 | PROGRESS NOTE ---
DATE: 04/28/2016 SUBJECTIVE: This patient had an endoscopy done 2 days ago. She is feeling better. She is eating better as well. She has been complaining of lower extremity edema up to the ankles. I stopped the IV fluids, and I will use just a one time dose of furosemide. Otherwise, she is feeling better. OBJECTIVE: Vital Signs: Temperature 98.2 degrees, pulse 91, respiratory rate 22, blood pressure 97/65, oxygen saturation 98% on room air. HEENT: Head normocephalic. No trauma. PERRLA. Neck supple. No JVD. No masses. Central trachea. Chest: Clear to auscultation. No wheezing. No rales. Cardiovascular: RRR. No murmurs. Abdomen is soft. Mild generalized tenderness. No rebound. Positive bowel sounds. Extremities: No edema. No clubbing. No cyanosis. Neurologic: The patient is alert and oriented x3. No focal neurological deficits. Extremities: 1+ edema up to the ankles. No clubbing. No cyanosis. LABORATORY: WBC 17.6, hemoglobin 9.7, hematocrit 29.5, platelets 376,000. Sodium 137, potassium 4.1, chloride 107, bicarbonate 23. BUN 5, creatinine 0.5, glucose 150. Calcium 7.4. ASSESSMENT AND PLAN: 1. Pancolitis. Colonoscopy showed severe degree of pancolitis with erythema, friability, erosion, ulceration likely related to ulcerative colitis, pending biopsy results. This patient has been placed on levofloxacin and metronidazole. Will continue with steroids. Gastroenterology Department is following this patient closely. 2. Erosive gastritis. Continue with proton pump inhibitor. 3. Nausea and vomiting. Continue with supportive care. She is not complaining today of nausea or vomiting. Continue p.r.n. medication. 4. Dehydration, resolved. 5. Folate deficiency. This patient is on folic acid. 6. Normocytic anemia. This is chronic. Will monitor.
[2016-04-28] MEDS: SOLU-MEDROL IV SCH (18:21)
--- NOTE | 2016-04-28 19:12 | PROGRESS NOTE ---
DATE: 04/28/2016 SUBJECTIVE: Patient sitting in chair. Her family is at the bedside. She is sitting better. She complains of some soreness in the abdomen. She was able to eat a better meal today and she is having soft bowel movements. OBJECTIVE: Vital signs: Temperature 98.2, pulse of 91, respiratory rate 18, blood pressure of 97/65, saturating 98% room air. General Appearance: Moderately built, moderately nourished, sitting in a chair, in no acute distress. HEENT: Pale conjunctivae. No icterus. Neck: Supple. Abdomen: Soreness over periumbilical region. No rebound. No guarding. Bowel sounds present. Extremities: No cyanosis, clubbing. Neurologic: She is alert, awake, oriented. LABS: Hemoglobin and hematocrit is 9.7 and 29.5, white count of 17.6, platelet count of 376,000. Sodium 137, potassium 4.1, chloride 107, bicarb 27, anion gap 7, BUN of 5, creatinine 0.5, total bilirubin is 0.18, AST 8, ALT less than 5, alkaline phosphatase is 67, total protein 4.4, albumin 1.7. Inflammatory bowel disease panel is positive ANCA suggesting ulcerative colitis. Biopsies of the stomach and colon showed chronic and active gastritis , negative H. pylori, and markedly active colitis, ulceration and crypt abscesses consistent with chronic inflammatory bowel disease. IMPRESSION AND PLAN: 1. Ulcerative colitis, new diagnosis, pancolitis. We will continue on prednisone/Solu-Medrol as an inpatient. We will transition to prednisone 40 mg once daily for 10 days , followed by 30 mg once daily for 10 days, followed by 20 mg once daily for 10 days, followed by 10 mg once a day for 10 days. We will also continue on Levaquin and Flagyl for a total of 10 days. 2. The patient continue on Culturelle 1 capsule p.o. b.i.d. for 6 weeks. 3. The patient has erosive gastritis. Continue on Prilosec once daily on discharge. 4. Hypoalbuminemia. The patient will continue on Ensure p.o. t.i.d. 5. Anemia. Will continue her on a multivitamin once daily. 6. The patient will follow up in the clinic in 4 weeks after discharge. I discussed the plan of care with the patient and family and also with Dr. Abbott. [facility]
[2016-04-29] MEDS: FLAGYL 500 MG/NS 100 ML IV SCH ×3 (05:42→21:34)
[2016-04-29] MEDS: SOLU-MEDROL IV SCH ×2 (05:43→16:41)
[2016-04-29] MEDS: ZOFRAN IV PRN ×2 (05:50→14:32)
[2016-04-29] MEDS: DILAUDID IV PRN ×3 (06:11→14:32)
[2016-04-29 07:21] LABS: BASO% 0.6 % (0.0-0.8); EOS# 0.03 X1000 (0.0-0.7); EOS% 0.2 % (0.0-10.0); HEMATOCRIT 29.4 % (37.0-47.0); HEMOGLOBIN 9.5 g/dL (12.0-16.0); IMM GRAN# 0.69 X1000 (0.0-0.04); IMM GRAN% 3.6 % (0.0-0.5); LYMPH# 2.22 X1000 (1.2-3.4); LYMPH% 11.5 % (20.5-51.1); MANUAL DIFF NEEDED? YES; MCH 28.2 PG (27-31); MCHC 32.3 g/dL (33-37); MCV 87.2 FL (81-99); MONO# 1.56 X1000 (0.11-0.59); MONO% 8.1 % (1.7-9.3); MPV 8.3 FL (7.4-10.4); PLT 375 X1000 (130-400); RBC 3.37 XMIL (4.2-5.4)
[2016-04-29 07:52] LABS: AGAP 10; ALBUMIN 1.8 g/dL (3.5-5.0); ALKALINE PHOSPHATASE 58 U/L (32-104); BANDS 3 % (0-1); BUN 8 mg/dL (8-22); CALCIUM 7.3 mg/dL (8.8-10.2); CHLORIDE 104 mmol/L (98-107); COSMO 278; GOT 8 U/L (10-30); GPT 6 U/L (10-36); HYPOCHROM 1+; LYMPHS 15 % (21-51); MONO 5 % (1-9); POTASSIUM 4.3 mmol/L (3.5-5.1); SODIUM 139 mmol/L (136-145); TCO2 25 mmol/L (25-35); TOTAL BILIRUBIN 0.18 mg/dL (0.20-1.00); TOTAL PROTEIN 4.4 g/dL (6.3-8.3)
[2016-04-29] MEDS: LEVAQUIN 500 MG/D5W 100 ML IV SCH (09:31)
[2016-04-29] MEDS: FOLIC ACID PO SCH (09:32)
[2016-04-29] MEDS: CENTRUM SILVER PO SCH (09:32)
[2016-04-29] MEDS: CULTURELLE PO SCH ×2 (09:32→21:34)
[2016-04-29] MEDS: ICAR-C PO SCH ×2 (09:32→21:34)
[2016-04-29] MEDS: MYCOSTATIN SUSP PO SCH ×4 (09:33→21:35)
--- NOTE | 2016-04-29 15:54 | PROGRESS NOTE ---
DATE: 04/29/2016 SUBJECTIVE: The patient is currently sitting in a chair. She complains of mild abdominal discomfort. She had some bowel movements this morning which were soft. She did see some blood in the stools. She denies any nausea. She denies any vomiting blood. No fevers. OBJECTIVE: Vital signs: Temperature 98, pulse rate 86, respiratory rate 20, blood pressure of 96/63, saturating 98% on room air. General Appearance: Moderately built, moderately nourished, lying in bed, in no acute distress. HEENT: Pale conjunctivae. No icterus. Neck: Supple. Abdomen: Soft. Mild discomfort periumbilical region. No rebound or guarding. Bowel sounds noted. Extremities: No cyanosis, clubbing, edema. Neurologic: He is alert, awake, and oriented. LABS: Hemoglobin and hematocrit is 9.5 and 29.4, white count of 19.3, platelet count of 475,000. Sodium 139, potassium 4.3, chloride 104, bicarb 25, anion gap 10, BUN 8, creatinine 0.5, glucose of 128, calcium 7.3, total bilirubin is 0.18, AST 8, ALT 6, alkaline phosphatase 58, total protein 4.4, albumin of 1.8. [facility] IBD panel positive ANCA suggesting ulcerative colitis. Biopsies also confirming ulcerative colitis. Stool studies negative for culture, C. difficile, ova and parasites. Negative Giardia. Negative Cryptosporidium. Stool for white cells, many. IMPRESSION AND PLAN: 1. Ulcerative colitis, new diagnosis. Presenting with pancolitis, severe. Continue on IV steroids, IV Levaquin, IV Flagyl. She will need an oral prednisone taper over 40 days as described in previous notes. We will also keep her on Levaquin and Flagyl for a total of 10 days. She will remain on Culturelle 1 capsule p.o. b.i.d. for 6 weeks. 2. Reflux disease. The patient will be on Prilosec OTC once daily. 3. Hypoalbuminemia. She will be on Ensure p.o. t.i.d. 4. Anemia. Will start on a multivitamin once daily. She also has low folate so that needs to be repleted. 5. The patient will follow up in the clinic in 4 weeks after discharge. The patient is going to work with the renal social worker to help arrange financial compliance examiner to help with her medications. Thank you for allowing us to participate in the care of the patient. I discussed the plan of care with the patient and family at bedside. LEXI
[2016-04-29] MEDS ORDERED: MAALOX PLUS LIQUID PO PRN (16:58)
--- NOTE | 2016-04-29 17:30 | PROGRESS NOTE ---
DATE: 04/29/2016 SUBJECTIVE: The patient is doing fine. She is still feeling nauseated and complaining of heartburn. She is eating well today. OBJECTIVE: Vital Signs: Temperature 97.8 degrees, heart rate 80, respiratory rate 21, blood pressure 112/57. O2 saturation 98% on room air. General examination: This is a 46-year-old female lying in bed, in no acute distress. HEENT: Head is normocephalic, atraumatic. Anicteric sclerae. [place] conjunctivae. Mucous membranes moist. Neck: Supple. No JVD is noted. No carotid bruits. No lymphadenopathy. No thyromegaly. Cardiovascular: S1 and S2 heard. No murmurs, gallops, or rubs. Regular rate and rhythm. Respiratory: Clear bilaterally to auscultation. No work of breathing or using accessory muscles. Abdomen: Soft, nontender to palpation. Bowel sounds present. No organomegaly. Extremities: No clubbing, cyanosis, or edema. Peripheral pulses present in both legs. Neurological: Patient is alert and oriented x3. Able to move 4 extremities. Cranial nerves grossly normal. LABORATORY DATA: Reviewed. ASSESSMENT AND PLAN: 1. Pancolitis, ulcerative colitis new diagnosis. At this time, we are going to continue with management recommended by GI. In this case, she is going to continue with Levaquin and metronidazole to complete 10 days. We will continue with this at this time. 2. Erosive gastritis. Patient is on Protonix. 3. Nausea and vomiting. Patient is on supportive care with Zofran and Phenergan. 4. Dehydration resolved. 5. Folate deficiency. Patient is receiving supplementation. If this patient is feeling better tomorrow we will discharge her home. She will have an appointment with Dr. iWck in 4 weeks.
[2016-04-29] MEDS ORDERED: LASIX IV ONE (22:02)
[2016-04-30] MEDS: FLAGYL 500 MG/NS 100 ML IV SCH (04:09)
[2016-04-30] MEDS: SOLU-MEDROL IV SCH (04:09)
[2016-04-30 05:39] VITALS: BP 106/61
[2016-04-30] MEDS: FOLIC ACID PO SCH (08:35)
[2016-04-30] MEDS: CULTURELLE PO SCH (08:35)
[2016-04-30] MEDS: ICAR-C PO SCH (08:35)
[2016-04-30] MEDS: CENTRUM SILVER PO SCH (08:35)
[2016-04-30] MEDS: LEVAQUIN 500 MG/D5W 100 ML IV SCH (08:35)
--- NOTE | 2016-05-01 13:53 | DISCHARGE SUMMARY ---
ADMISSION DATE: 04/23/2016 DISCHARGE DATE: 04/30/2016 CONSULTATION: Dr. Cai with gastroenterology. PERTINENT PROCEDURES: 1. Abdomen and pelvis CT showed colitis, enlarged left ovary, fatty liver infiltration, and mildly prominent para-aortic lymph nodes. 2. EGD with biopsy and colonoscopy with biopsy performed by Dr. Wick. DISCHARGE DIAGNOSES: 1. Burns colitis, ulcerative colitis, No diagnosis. Continue with antibiotics and gastroenterology recommendations. 2. Erosive gastritis. Continue proton pump inhibitor. 3. Nausea and vomiting, improved. 4. Dehydration, resolved. 5. Folate deficiency. Continue supplementation. HOSPITAL COURSE: Briefly, Ms. Echols is a 46-year-old female, who denies any past medical history, reported to the ED with complaints of abdominal pain, nausea, vomiting and bloody diarrhea for 3 months. She reported since January 2016 that she had been having these symptoms, and had been treated on 2-3 different occasions with antibiotics by physicians at . The patient reports that she does not have a primary care physician. She was seen by the surgeon, Dr. Gaona, at [facility], who did mention that he was planning to do a colonoscopy on her. Patient has taken most recently antibiotics of Levaquin and Cipro for the treatment of her symptoms, as well as most recently with Cipro for diagnosed urinary tract infection. She states she has not been able to tolerate the Cipro orally, and that she has been having loose stools with loose bloody stools for 3 months. The color ranges from dark red to bright red at times. She described the abdominal pain is constant and gnawing. Drinking water makes the pain worse and only pain medications improve it. Denied any bloody or coffee-ground emesis. Reported a low-grade fever at home with the highest of 100.5. The patient was admitted with IV antibiotics, antiemetics, as well as. IV fluids and Protonix for PPI. GI did an EGD and colonoscopy. She was continued on IV Levaquin and Flagyl, as well as Solu- Medrol 40 mg IV b.i.d. They did send a in [facility] IBD panel. They would like to see the patient back in 2 weeks of her discharge. At that time, they will discuss long-term plans based on her pathology results. The patient was also counseled to avoid any NSAIDs, spicy foods and take a bland diet. Further recommendations are pending her biopsies. Customs House Broker was also consulted to help arrange with patient's medications. The patient was tolerating her diet well. She had bouts of nausea, but was able to continue to eat. VITAL SIGNS AT TIME OF DISCHARGE: Temperature is 98.4 degrees, heart rate 72, respirations 21, blood pressure is 106/61, O2 is 98% on room air. DISCHARGE MEDICATIONS: 1. Phenergan 25 mg p.o. q. 6 hours p.r.n. 2. Levsin drops 0.125 mg p.o. daily. 3. Hydrocodone 7.5/325 one each p.o. q. 6 hours p.r.n. 4. Maalox Plus 30 mL p.o. t.i.d. p.r.n. 5. Centrum Silver 1 each p.o. daily. 6. Cipro 500 mg p.o. b.i.d. 7. Lactose bacillus 1 each p.o. b.i.d. 8. Folic acid 1 mg p.o. daily. 9. Icar-C 1 each p.o. b.i.d. 10. Flagyl 500 mg p.o. t.i.d. FOLLOWUP: Patient is being discharged home. She will follow up with Dr. Wick in 2 weeks, and she has been provided a list of PCPs accepting new patients, which she will need to follow up with. Patient can return to the ED for any worsening of symptoms. DISCHARGE TIME: 35 minutes. Dictated by NASIM Zee for Ronnell Piña MD [facility]
== END 2016-04-30 15:40 | disposition home or self-care (01) | DRG 385 ==
LOC: ED 23:01 → EDIPHOLD 04-23 03:14 → 3N 04-23 14:02
PROVIDERS: ATTEND Internal Medicine
PROC: 0DB68ZX Excision of Stomach, Via Natural or Artificial Opening Endoscopic, Diagnostic (ICD-10-PCS; principal; 2016-04-26 10:33)
PROC: 0DBE8ZX Excision of Large Intestine, Via Natural or Artificial Opening Endoscopic, Diagnostic (ICD-10-PCS; 2016-04-26 10:33)
DX: K51.90 Ulcerative colitis, unspecified, without complications (principal); K29.71 Gastritis, unspecified, with bleeding; B37.0 Candidal stomatitis; Z87.891 Personal history of nicotine dependence; Z83.3 Family history of diabetes mellitus; Z79.899 Other long term (current) drug therapy; T36.95XA Adverse effect of unspecified systemic antibiotic, initial encounter; E86.0 Dehydration; E87.6 Hypokalemia; D50.0 Iron deficiency anemia secondary to blood loss (chronic); R73.9 Hyperglycemia, unspecified; E53.8 Deficiency of other specified B group vitamins; K21.9 Gastro-esophageal reflux disease without esophagitis; E88.09 Other disorders of plasma-protein metabolism, not elsewhere classified
CPT/HCPCS: 36415; 74177; 80048; 80053; 81001; 82040; 82270; 82607; 82728; 82746; 83540; 83550; 83630; 83735; 85025; 85610; 85651; 85730; 86140; 86255; 86671; 86850; 86900; 86901; 87045; 87046; 87177; 87324; 87328; 87329; 87449; 88305; 88312; 88313; 89055; 96361; 96365; 96366; 96367; 96368; 96375; C9113; J1170; J1940; J2270; J2405; J2920; J3010; J3480; J7030; J7512; Q9967; S0030; S0164

== ENCOUNTER 2016-05-14 21:17 | Inpatient (IN) ==
[2016-05-14] MEDS ORDERED: ZOFRAN IV ONE (21:51)
[2016-05-14] MEDS ORDERED: DILAUDID IV ONE (21:52)
[2016-05-14] MEDS ORDERED: NS 1,000 ML IV ONE (21:55)
[2016-05-14 22:21] LABS: BASO% 0.1 % (0.0-0.8); HEMATOCRIT 30.6 % (37.0-47.0); IMM GRAN# 0.03 X1000 (0.0-0.04); IMM GRAN% 0.3 % (0.0-0.5); LYMPH# 0.96 X1000 (1.2-3.4); LYMPH% 9.6 % (20.5-51.1); MANUAL DIFF NEEDED? NO; MCH 28.8 PG (27-31); MCHC 32.7 g/dL (33-37); MCV 88.2 FL (81-99); MPV 8.3 FL (7.4-10.4); PLT 356 X1000 (130-400); RBC 3.47 XMIL (4.2-5.4)
[2016-05-14 22:37] LABS: AGAP 13; ALBUMIN 2.1 g/dL (3.5-5.0); ALKALINE PHOSPHATASE 59 U/L (32-104); BUN 8 mg/dL (8-22); CALCIUM 7.7 mg/dL (8.8-10.2); CHLORIDE 93 mmol/L (98-107); COSMO 263; GOT 7 U/L (10-30); GPT 7 U/L (10-36); LIPASE 8 U/L (13-60); POTASSIUM 4.7 mmol/L (3.5-5.1); SODIUM 132 mmol/L (136-145); TCO2 26 mmol/L (25-35); TOTAL PROTEIN 4.9 g/dL (6.3-8.3)
[2016-05-14 23:21] LABS: SED RATE 34 mm/hr (0-20)
[2016-05-14] MEDS ORDERED: SOLU-MEDROL IV SCH ×2 (23:35→23:45)
[2016-05-14] MEDS ORDERED: DILAUDID IV PRN (23:35)
[2016-05-14] MEDS ORDERED: VENOFER 200 MG in NS 100 ML IV SCH (23:35)
[2016-05-15] MEDS: DILAUDID IV PRN ×4 (01:21→23:59)
[2016-05-15] MEDS: ZOSYN 3.375 GM/NS 50 ML IV SCH ×3 (01:43→23:40)
[2016-05-15] MEDS: CLINIMIX E 4.25%-5% SOLUTION 1,000 ML IV SCH ×2 (01:43→10:00)
[2016-05-15] MEDS: PROTONIX IV SCH ×3 (01:44→20:22)
[2016-05-15] MEDS: VENOFER 200 MG in NS 100 ML IV SCH (05:00)
--- NOTE | 2016-05-15 10:06 | HISTORY AND PHYSICAL ---
RN MATERNITY: Dr. Isaac Wick. CHIEF COMPLAINT: Abdominal pain, blood in stool. HISTORY OF PRESENT ILLNESS: This is a 46-year-old female who was last admitted to our service on 05/02/2016. She was admitted before that on 04/23/2016. She has been diagnosed with ulcerative colitis and sees Dr. Wick. She was set to see Dr. Pickard for treatment of her anemia to help build up her blood count. She is a Protestant and will not take blood products. However, she is willing to take Epogen and Venofer as well as Cell Saver. At any rate, over the last few days when she has been out of the hospital her condition has continued to decline. According to the daughter who is at bedside she has ultimately been bed-bound and has not been able to eat more than a very small amount of food. She is also not taking in proper amounts of fluids, per the family. Today, she stated that she was having increased sharp left-sided pain and continues to have zaida red blood in her stool. The who is at bedside noted that on the drive to the emergency room she appeared to be in and out of consciousness on him. However, she is alert and oriented x3 in the emergency room. She will be admitted for further evaluation and treatment. PAST MEDICAL HISTORY: Ulcerative colitis. Otherwise no other significant past medical history other than nausea, vomiting and diarrhea with blood in her stool previous to our diagnosis. PREVIOUS SURGICAL HISTORY: Tonsillectomy and adenoidectomy. SOCIAL HISTORY: She is a former smoker and smoked from approximately the age of a teenager until she was 31 smoking up to 2 packs of cigarettes per day. She denies tobacco use at this time. Also no alcohol or illicit drug use or abuse. FAMILY HISTORY: Diabetes in 1st degree relatives. Otherwise no medical problems. ALLERGIES: No known drug allergies. HOME MEDICATIONS: 1. Maalox Plus 30 mL p.o. t.i.d. p.r.n. 2. Culturelle 1 p.o. b.i.d. 3. Icar C 1 p.o. b.i.d. 4. Flagyl 500 mg p.o. t.i.d. 5. Folic acid 1 mg p.o. daily. 6. Cipro 500 mg p.o. b.i.d. 7. Prednisone 10 mg p.o. daily. 8. Mycostatin 5 mL p.o. q.4 daily. 9. Centrum Silver 1 p.o. b.i.d. 10. [place] 10 one p.o. q.6 p.r.n. 11. Nexium 24 hour 1 p.o. daily. 12. Zofran 4 mg p.o. 4 times a day. REVIEW OF SYSTEMS: Fourteen point review of systems conducted with the patient. All negative except for listed above in the HPI. PHYSICAL EXAMINATION: VITAL SIGNS: Temperature 97.8 degrees, pulse 105, respirations 18, blood pressure 115/70, oxygen saturation 100% on room air. GENERAL: This is a pleasant 46-year-old female lying in the ER stretcher. She is alert oriented x3 and in no acute distress after receiving Dilaudid in the ER. HEENT: Head is atraumatic, normocephalic. Pupils equal, round, reactive to light. Extraocular eye movement intact. Sclerae are anicteric. Conjunctivae are pale. Oral mucosa is moist. NECK: Supple. No JVD. No thyromegaly. Trachea is midline. CARDIAC: S1-S2 appreciated. No murmurs, gallops, rubs. Regular rhythm. LUNGS: Clear to auscultation bilaterally. Symmetrical rise and fall with respirations. No rhonchi, wheezes or rales. ABDOMEN: Soft, diffusely tender. Greatest tenderness in the left upper and lower quadrant. Noted rebound tenderness. Bowel sounds are normoactive all 4 quadrants. No pulsatile mass. No organomegaly. EXTREMITIES: Two plus pitting edema bilateral lower extremities from the mid calf down. 2+ pedal pulses bilaterally. MUSCULOSKELETAL: Patient has 3/5 upper and lower extremity strength equal bilaterally. Mildly decreased range of motion related weakness. NEUROLOGICAL: Alert and oriented x3. Cranial nerves 2-12 are grossly intact. DIAGNOSTIC DATA: CT of the abdomen is pending. We will evaluate results. LABORATORY DATA: WBC 10.04, hemoglobin 10, hematocrit 30.6, platelet count 356,000. Sodium 132, potassium 4.5, chloride 92, carbon dioxide 26, BUN 8, creatinine 0.4, glucose 93, C-reactive protein 86.24, albumin 2.1. ASSESSMENT AND PLAN: 1. Ulcerative colitis. The patient sees Dr. Wick. She has been taking Cipro and Flagyl outpatient. We will place her on Zosyn 3.375 IV q.6 hours. We will also place on Protonix 40 mg IV q.12 hours. Continue patient's Culturelle and Zofran and continue Dilaudid 1 mg IV q.3 hours as needed for pain. Trend hemoglobin and hematocrit with q.6 hours. We will check a stool culture and a C. difficile toxin. Consult Dr. Wcik with GI. 2. Lower gastrointestinal bleeding. Please see above. 3. Anemia, aware. Patient is a Protestant. She will not receive a blood transfusion. However, she is open to some alternative treatments noted above in the HPI. We will consult Dr. Pickard to see the patient for further help in building her blood count. 4. Failure to thrive. The patient has not been able to sustain adequate intake. We will start the patient on Clinimix at 100 mL an hour. 5. Deep venous thrombosis prophylaxis. We will place the patient on SCD hose as she has noted GI bleeding and cannot receive blood transfusions. Further recommendations per patient clinical course please. Dictated by NASIM Russo for John Ahuja MD cc: NASIM Russo MD Manish Arora, MD Naveen T. Lobo, MD
--- NOTE | 2016-05-15 10:06 | Diag Imaging Result Document ---
PROCEDURE NAME: CT ABD/PELVIS W/ IV CONT ONLY - 05/14/2016 CT OF THE ABDOMEN WITH INTRAVENOUS CONTRAST: FINDINGS: The visualized portion of the chest is unremarkable and unchanged since 05/02/2016. There continues to be slight dilatation of the left colon with thickening of the mucosa throughout the ascending and descending colon. The small bowel is not distended. The liver, spleen, adrenal glands, pancreas, and kidneys are stable in appearance. There are no abnormal fluid collections. The aorta is stable in appearance and there are some nonspecific periaortic nodes which were also present at the time of the previous study. CT OF THE PELVIS WITH INTRAVENOUS CONTRAST: The rectosigmoid also demonstrates some evidence of mucosal thickening. The left ovary continues to be enlarged with what appears to be a complicated cystic mass measuring over 4.5 cm in greatest dimension. There is no significant free pelvic fluid. The urinary bladder is unremarkable. The regional skeleton is stable in appearance. IMPRESSION: 1. Apparent colitis stable since 05/02/2016. 2. Left ovarian mass or complicated cyst, also stable.
[2016-05-15] MEDS ORDERED: PREDNISONE PO SCH (11:50)
[2016-05-15] MEDS: ICAR-C PO SCH ×2 (13:30→20:22)
[2016-05-15] MEDS: FOLIC ACID PO SCH (13:30)
[2016-05-15] MEDS: CENTRUM SILVER PO SCH ×2 (13:30→20:22)
[2016-05-15] MEDS: SODIUM CHLORIDE 0.9% INJ SCH (13:30)
[2016-05-15] MEDS: CULTURELLE PO SCH ×2 (13:30→20:22)
[2016-05-15] MEDS: PREDNISONE ONE ×2 (13:30→23:45)
--- NOTE | 2016-05-15 14:18 | PROGRESS NOTE ---
DATE: 05/15/2016 SUBJECTIVE: The patient is feeling a little better today. Still having diarrhea, bloody. No fever. No chills. The patient was recently diagnosed with ulcerative colitis by Dr. Wick. OBJECTIVE: Vital Signs: Blood pressure is 116/62, pulse of 91, respiration 18, temperature 98 degrees, saturations of 99% on room air. General appearance: Well-developed, well-nourished white female in no acute distress. HEENT: Anicteric. Clear conjunctivae. Neck: Supple. No JVD. No bruit. Cardiovascular: S1, S2. Normal rate and rhythm. No murmur, rubs, or gallops. Pulmonary: Clear to auscultation bilaterally. Gastrointestinal: Abdomen soft, tender to palpation diffusely. Musculoskeletal: No clubbing, cyanosis, or edema. LABORATORY: White count 9.5, hemoglobin 9.3, hematocrit 29.1, platelets 339,000. Sodium 132, potassium 4.3, chloride 97, bicarb 26, BUN 7, creatinine 0.3, glucose 110. ASSESSMENT AND PLAN: This is a 46-year-old white female recently diagnosed with ulcerative colitis and is on tapering steroids. Presented with bloody diarrhea and abdominal pain. 1. Ulcerative colitis exacerbation. We increased her prednisone to 50 mg p.o. daily. The patient is on Zosyn. She was on Cipro and Flagyl as an outpatient. Continue pain control. Culture was sent. GI was consulted. 2. Deep venous thrombosis prophylaxis. SCD for now. 3. Code status: Patient is full code.
--- NOTE | 2016-05-15 14:19 | CONSULTATION ---
DATE OF CONSULTATION: 05/15/2016 HEMATOLOGY/ONCOLOGY CONSULT REASON FOR ADMISSION: Patient has normocytic anemia. HISTORY OF PRESENT ILLNESS: Patient is known to us. She has been diagnosed with ulcerative colitis requiring multiple hospital admissions. She apparently has had recent abdominal pain and cramping. Her most recent discharge was 05/07/2016. This time she came in with more abdominal cramping and pain. CT abdomen and pelvis is currently pending. Patient is a Sikh. Does not receive blood products. She has been on ICAR-C. She is currently receiving IV iron. She does have a known left ovarian cyst with a low CA 125 previously and previously had been consulted by Gynecology. She has had some nausea but no vomiting, no early satiety. She remains anxious. REVIEW OF SYSTEMS: Negative unless indicated in HPI. ALLERGIES: No known allergies. HOME MEDICATIONS: ICAR-C, Flagyl, folic acid, Neurontin, and prednisone. PAST MEDICAL/SOCIAL HISTORY: Patient has ulcerative colitis. FAMILY HISTORY: Patient's grandfather of colorectal carcinoma. Patient is a former smoker and drinker. She no longer drinks or smokes. Denies illicit drug use. PHYSICAL EXAMINATION: Vital signs: Stable. Constitutional: This is a female in no acute distress. She appears anxious. HEENT: Head is normocephalic, atraumatic. Pupils equal, round, symmetric. Cardiovascular: S1, S2 audible to auscultation with no heaves, lifts, thrills. Pulmonary: Breath sounds are clear to auscultation with normal respiratory effort. Abdomen: Soft, flat, nontender with positive bowel sounds in all four quadrants. Extremities: The patient moves all extremities. There is no edema. Neurologic: Alert and oriented x3. Psychiatric: Appropriate to the situation. Patient does appear anxious. ASSESSMENT AND PLAN: 1. Normocytic anemia. Patient's hemoglobin and hematocrit are stable. Would not transfuse as needed as patient is a Sikh. She is getting IV iron at this time. 2. Ulcerative colitis, on Flagyl, Protonix. 3. Left ovarian cyst. She has previously been seen by Gynecology. Her CA 125 was previously 22. We will follow along. Dictated by NASIM Muñoz for Dariusz Pickard MD cc: NASIM Muñozo, MD
[2016-05-15] MEDS ORDERED: SOLU-MEDROL ONE (15:51)
[2016-05-15] MEDS ORDERED: MAALOX PLUS LIQUID PO PRN (16:24)
[2016-05-15 17:23] LABS: AGAP 9; BUN 7 mg/dL (8-22); CALCIUM 7.2 mg/dL (8.8-10.2); CHLORIDE 97 mmol/L (98-107); COSMO 263; POTASSIUM 4.3 mmol/L (3.5-5.1); SODIUM 132 mmol/L (136-145); TCO2 26 mmol/L (25-35)
[2016-05-15 17:41] LABS: BASO% 0.2 % (0.0-0.8); EOS# 0.05 X1000 (0.0-0.7); EOS% 0.5 % (0.0-10.0); HEMATOCRIT 29.1 % (37.0-47.0); HEMOGLOBIN 9.3 g/dL (12.0-16.0); IMM GRAN# 0.03 X1000 (0.0-0.04); IMM GRAN% 0.3 % (0.0-0.5); LYMPH# 1.18 X1000 (1.2-3.4); LYMPH% 12.4 % (20.5-51.1); MANUAL DIFF NEEDED? YES; MCH 28.4 PG (27-31); MONO# 1.33 X1000 (0.11-0.59); MPV 8.2 FL (7.4-10.4); NEUT% 72.6 % (42.2-75.2); PLT 339 X1000 (130-400); RBC 3.27 XMIL (4.2-5.4)
[2016-05-15] MEDS: MYCOSTATIN SUSP PO SCH ×3 (18:05→23:39)
[2016-05-15 18:24] LABS: MANUAL DIFF NEEDED? NO
[2016-05-15 18:39] LABS: HEMATOCRIT 27.1 % (37.0-47.0); HEMOGLOBIN 8.8 g/dL (12.0-16.0); MCH 28.9 PG (27-31); MCHC 32.5 g/dL (33-37); MCV 88.9 FL (81-99); RBC 3.05 XMIL (4.2-5.4)
[2016-05-15 18:40] LABS: BASO% 0.2 % (0.0-0.8); EOS# 0.05 X1000 (0.0-0.7); EOS% 0.8 % (0.0-10.0); IMM GRAN# 0.05 X1000 (0.0-0.04); IMM GRAN% 0.8 % (0.0-0.5); LYMPH# 0.43 X1000 (1.2-3.4); LYMPH% 6.7 % (20.5-51.1); MONO# 0.43 X1000 (0.11-0.59); MONO% 6.7 % (1.7-9.3); MPV 8.2 FL (7.4-10.4); NEUT% 84.8 % (42.2-75.2); PLT 329 X1000 (130-400)
[2016-05-15 19:13] LABS: BANDS 13 % (0-1); LYMPHS 12 % (21-51); MONO 6 % (1-9); NRBC 2 % (0-0)
[2016-05-15 19:16] LABS: MANUAL DIFF NEEDED? NO
[2016-05-16] MEDS: CLINIMIX E 4.25%-5% SOLUTION 1,000 ML IV SCH ×4 (00:03→14:51)
[2016-05-16 01:49] LABS: BASO% 0.2 % (0.0-0.8); EOS# 0.01 X1000 (0.0-0.7); EOS% 0.2 % (0.0-10.0); HEMOGLOBIN 7.9 g/dL (12.0-16.0); IMM GRAN# 0.03 X1000 (0.0-0.04); IMM GRAN% 0.5 % (0.0-0.5); LYMPH% 9.4 % (20.5-51.1); MANUAL DIFF NEEDED? NO; MCH 29.6 PG (27-31); MCHC 32.9 g/dL (33-37); MCV 89.9 FL (81-99); MONO% 7.8 % (1.7-9.3); MPV 8.3 FL (7.4-10.4); NEUT% 81.9 % (42.2-75.2); PLT 291 X1000 (130-400); RBC 2.67 XMIL (4.2-5.4)
[2016-05-16 02:27] LABS: RBC 3.04 XMIL (4.2-5.4)
[2016-05-16 02:28] LABS: BASO% 0.2 % (0.0-0.8); EOS# 0.11 X1000 (0.0-0.7); EOS% 1.4 % (0.0-10.0); HEMATOCRIT 26.9 % (37.0-47.0); HEMOGLOBIN 8.9 g/dL (12.0-16.0); IMM GRAN# 0.05 X1000 (0.0-0.04); IMM GRAN% 0.6 % (0.0-0.5); LYMPH# 1.15 X1000 (1.2-3.4); LYMPH% 14.2 % (20.5-51.1); MCH 29.3 PG (27-31); MCHC 33.1 g/dL (33-37); MCV 88.5 FL (81-99); MONO# 1.06 X1000 (0.11-0.59); MONO% 13.1 % (1.7-9.3); MPV 8.5 FL (7.4-10.4); NEUT% 70.5 % (42.2-75.2); PLT 327 X1000 (130-400)
[2016-05-16] MEDS: VENOFER 200 MG in NS 100 ML IV SCH ×3 (03:11→23:34)
[2016-05-16] MEDS: ZOSYN 3.375 GM/NS 50 ML IV SCH ×6 (04:10→20:37)
[2016-05-16] MEDS: DILAUDID IV PRN ×3 (06:28→12:36)
[2016-05-16] MEDS: NORCO-10 PO PRN ×3 (06:29→22:09)
[2016-05-16 07:16] LABS: BASO% 0.1 % (0.0-0.8); HEMATOCRIT 24.5 % (37.0-47.0); IMM GRAN# 0.05 X1000 (0.0-0.04); IMM GRAN% 0.7 % (0.0-0.5); LYMPH# 0.66 X1000 (1.2-3.4); LYMPH% 9.5 % (20.5-51.1); MANUAL DIFF NEEDED? YES; MCH 28.9 PG (27-31); MCHC 32.7 g/dL (33-37); MCV 88.4 FL (81-99); MONO# 0.31 X1000 (0.11-0.59); MONO% 4.5 % (1.7-9.3); MPV 9.9 FL (7.4-10.4); NEUT% 85.2 % (42.2-75.2); PLT 312 X1000 (130-400); RBC 2.77 XMIL (4.2-5.4)
[2016-05-16] MEDS: SOLU-MEDROL IV SCH ×3 (08:22→18:13)
[2016-05-16] MEDS: FOLIC ACID PO SCH (08:23)
[2016-05-16] MEDS: ICAR-C PO SCH ×2 (08:23→20:38)
[2016-05-16] MEDS: CENTRUM SILVER PO SCH ×3 (08:23→20:39)
[2016-05-16] MEDS: CULTURELLE PO SCH ×2 (08:23→20:37)
[2016-05-16 08:24] LABS: BANDS 4 % (0-1); LYMPHS 8 % (21-51); MONO 6 % (1-9)
[2016-05-16] MEDS ORDERED: ESOMEPRAZOLE MAGNESIUM 22.3 MG PO SCH (09:00)
--- NOTE | 2016-05-16 12:31 | PROGRESS NOTE ---
DATE: 05/16/2016 SUBJECTIVE: The patient is feeling better today. No fever. No chills. Very little diarrhea. Following the patient for ulcerative colitis flare. OBJECTIVE: Vital signs: Blood pressure 107/58, pulse of 70, respirations 14, temperature 97.9 degrees. General appearance: Well-developed, well-nourished white female in no acute distress today. HEENT: Anicteric. Clear conjunctivae. Neck: Supple. No JVD. No bruit. Cardiovascular: S1, S2. Normal rate and rhythm. No murmur, rubs, or gallops. Pulmonary: Clear to auscultation bilaterally. Gastrointestinal: Soft, nontender, nondistended. Normoactive bowel sounds. Musculoskeletal: No clubbing, cyanosis, or edema. LABORATORY DATA: White count 6.92, hemoglobin 8.0, hematocrit of 24.5, platelets of 312,000. Chemistry: Sodium 132, potassium 4.3, chloride 97, bicarb 26, BUN 7, creatinine 0.3, glucose of 110. ASSESSMENT AND PLAN: This is a 46-year-old white female with recent diagnosis of ulcerative colitis, admitted for bloody diarrhea and abdominal pain. 1. Ulcerative colitis flare. We will continue prednisone 50, Zosyn. Pain control. Much improved. Continue IV fluid. GI is following. 2. Gastroesophageal reflux disease. We will continue on PPI. 3. We will advance her diet slowly, we will start her on a full liquid diet today.
[2016-05-16] MEDS: PROTONIX IV SCH ×3 (12:53→23:35)
[2016-05-16] MEDS: SODIUM CHLORIDE 0.9% INJ SCH ×2 (12:53→20:37)
[2016-05-16] MEDS: MYCOSTATIN SUSP PO SCH ×4 (14:51→22:09)
[2016-05-16 15:54] LABS: URINE CULTURE NEEDED? NO; URINE MICRO REVIEW NEEDED? NO; URINE SOURCE CLEAN CATCH
[2016-05-16 16:04] LABS: BILIRUBIN URINE NEGATIVE (NEGATIVE); BLOOD URINE NEGATIVE (NEGATIVE); COLOR YELLOW; GLUCOSE URINE NEGATIVE (NEGATIVE); LEUKOCYTES URINE NEGATIVE (NEGATIVE); NITRITE URINE NEGATIVE (NEGATIVE); PH URINE 7.5; PROTEIN URINE TRACE mg/dL (NEGATIVE); TURBIDITY URINE CLEAR (CLEAR); UR EPITHELIAL CELLS <10 /HPF (<10); URINE BACTERIA NEGATIVE /HPF; URINE RBC <10 /HPF (<10); URINE WBC <10 /HPF (<10); UROBILINOGEN URINE NORMAL (NORMAL)
[2016-05-17] MEDS: CLINIMIX E 4.25%-5% SOLUTION 1,000 ML IV SCH ×3 (03:21→23:37)
[2016-05-17] MEDS: SOLU-MEDROL IV SCH ×3 (03:26→20:42)
[2016-05-17] MEDS: ZOSYN 3.375 GM/NS 50 ML IV SCH ×4 (03:32→21:48)
[2016-05-17] MEDS: CENTRUM SILVER PO SCH ×2 (08:47→20:42)
[2016-05-17] MEDS: CULTURELLE PO SCH ×2 (08:47→20:42)
[2016-05-17] MEDS: ICAR-C PO SCH ×2 (08:48→20:42)
[2016-05-17] MEDS: NORCO-10 PO PRN ×3 (08:48→21:47)
[2016-05-17] MEDS: FOLIC ACID PO SCH (08:48)
[2016-05-17] MEDS: MYCOSTATIN SUSP PO SCH ×4 (08:49→21:48)
[2016-05-17 09:04] LABS: BASO% 0.2 % (0.0-0.8); HEMATOCRIT 25.6 % (37.0-47.0); HEMOGLOBIN 8.1 g/dL (12.0-16.0); IMM GRAN# 0.08 X1000 (0.0-0.04); IMM GRAN% 0.9 % (0.0-0.5); LYMPH# 0.71 X1000 (1.2-3.4); LYMPH% 8.4 % (20.5-51.1); MANUAL DIFF NEEDED? YES; MCH 28.4 PG (27-31); MCHC 31.6 g/dL (33-37); MCV 89.8 FL (81-99); MONO# 0.43 X1000 (0.11-0.59); MONO% 5.1 % (1.7-9.3); MPV 8.3 FL (7.4-10.4); NEUT% 85.4 % (42.2-75.2); PLT 358 X1000 (130-400); RBC 2.85 XMIL (4.2-5.4)
[2016-05-17 09:20] LABS: AGAP 8; ALBUMIN 2.2 g/dL (3.5-5.0); ALKALINE PHOSPHATASE 58 U/L (32-104); BUN 7 mg/dL (8-22); CALCIUM 7.6 mg/dL (8.8-10.2); CHLORIDE 98 mmol/L (98-107); COSMO 266; GOT 10 U/L (10-30); GPT 11 U/L (10-36); POTASSIUM 4.4 mmol/L (3.5-5.1); SODIUM 133 mmol/L (136-145); TCO2 27 mmol/L (25-35); TOTAL PROTEIN 4.8 g/dL (6.3-8.3)
[2016-05-17] MEDS: ZOFRAN IV PRN (11:10)
[2016-05-17] MEDS: ENTOCORT EC PO SCH (11:12)
--- NOTE | 2016-05-17 11:25 | PROGRESS NOTE ---
DATE: 05/17/2016 SUBJECTIVE: Patient is resting in bed. She had 3 BMs today where she did see minimal to no blood today. She was able to eat a good meal this morning. Her abdominal pain is getting better. She denies any nausea, vomiting, vomiting blood. She denies any fevers, rigors, chills. PHYSICAL EXAMINATION: Vital Signs: Temperature 98.4, pulse rate of 65, respiratory rate 18, blood pressure 97/56, saturating 98% on room air. General Appearance: Moderately built, moderately nourished, lying in bed, in no acute distress. HEENT: Pale conjunctivae. No icterus. Pupils equal and react to light. Neck: Supple. Chest: Regular rhythm. No murmur. Abdomen: Soft, nontender, nondistended. Bowel sounds are heard. No rebound. No guarding. Extremities: No cyanosis, clubbing, edema. Neurologic: She is alert, awake, oriented. LABS: Her hemoglobin and hematocrit are 8.1 and 25.6, white count of 8.43, platelet count of 358,000, MCV of 89.8. Sodium of 138, potassium 4.4, chloride 98, bicarb 27, anion of 8, BUN of 7, creatinine 0.8, glucose of 133, calcium 7.6. Total bilirubin is 0.2, AST 10, ALT 11, alkaline phosphatase 58, total protein 4.8, albumin of 2.2, lipase of 8. Trace protein in the urinalysis. She had abdominal and pelvic CT scan done on 05/14/2016 on admission which showed slight dilation of the left colon with thickening of the mucosa throughout the ascending and descending colon. The small bowel is nondistended. There are no abnormal fluid collections. The rectosigmoid also demonstrates some evidence of mucosal thickening. The left ovary continues to be enlarged. It appears to be a complicated cystic mass measuring 4.5 cm in greatest dimension. The regional skeleton is stable in appearance. Her stool for C. difficile toxin was negative and stool cultures were also negative. Her sedimentation rate was 34. Her CRP is 86.24. IMPRESSION AND PLAN: 1. Severe ulcerative colitis involving the entire colon, diagnosed in April 2016 , having a 3rd admission for continued symptoms despite being on prednisone and antibiotics. At this point, we will continue on Solu-Medrol 40 mg intravenous every 8 hours. We will start her on mesalamine 4 mg twice a day. We will start her on antibiotics as per the primary team. We will also start her on Entocort 9 mg once daily. We will keep her on Culturelle 1 capsule by mouth twice a day. We will keep her on multivitamin and iron supplementation. 2. Anemia which is stabilizing and patient is a Catholic. Will continue on iron supplementation and multivitamin supplementation. Dr. Pickard is on board, will be planning on giving intravenous iron infusions. 3. Left ovarian complicated cyst being followed by primary team. 4. Gastrointestinal prophylaxis with proton pump inhibitors and to continue. The above plan was discussed with the patient. All questions were answered. cc: MD Dariusz Arnold MD [facility]
[2016-05-17 11:31] LABS: BANDS 10 % (0-1); LYMPHS 14 % (21-51); MONO 4 % (1-9)
[2016-05-17 11:32] LABS: HYPOCHROM 1+
[2016-05-17] MEDS: PROTONIX IV SCH ×3 (11:39→23:37)
--- NOTE | 2016-05-17 14:32 | PROGRESS NOTE ---
DATE: 05/17/2016 SUBJECTIVE: The patient is resting comfortably in bed. She states that she is still having loose stools with a little bit of blood in them. OBJECTIVE: Vital Signs: Temperature 98.9 degrees, blood pressure 110/65, heart rate 75, respirations 18, O2 saturations 99% on room air. General: This is a middle-aged female lying in bed in no acute distress. Head: Normocephalic, atraumatic. Heart: S1, S2. Normal. Regular rate and rhythm. Lungs: Clear to auscultation bilaterally. Abdomen: Positive bowel sounds. Soft, nontender, nondistended. Extremities: No edema. No cyanosis. Neurologic: The patient is alert oriented x3. LABS: White blood cell count 8.4, hemoglobin 8.1, hematocrit 25, platelets 358,000. Sodium 133, potassium 4.4 chloride 98, CO2 27, BUN 7, creatinine 0.3, glucose 133. ASSESSMENT AND PLAN: 1. Severe ulcerative colitis flare. Continue on IV steroids, IV antibiotics and further treatment as directed by the legislative aide. 2. Iron deficiency anemia. The patient is being followed by Dr. Pickard. She is currently receiving intravenous iron infusions. 3. Left ovarian cystic mass. The patient is being followed by HOUSE CLEANER SUPERVISOR as outpatient. cc: Maile Beltrán MD
[2016-05-17] MEDS: DELZICOL PO SCH (20:43)
[2016-05-18] MEDS: VENOFER 200 MG in NS 100 ML IV SCH ×2 (00:17→23:51)
[2016-05-18] MEDS: ZOSYN 3.375 GM/NS 50 ML IV SCH ×4 (03:19→20:19)
[2016-05-18] MEDS: NORCO-10 PO PRN ×3 (03:22→20:45)
[2016-05-18] MEDS: SOLU-MEDROL IV SCH ×3 (05:31→20:20)
[2016-05-18 06:26] LABS: BASO% 0.4 % (0.0-0.8); EOS# 0.01 X1000 (0.0-0.7); EOS% 0.1 % (0.0-10.0); HEMATOCRIT 24.1 % (37.0-47.0); HEMOGLOBIN 7.6 g/dL (12.0-16.0); IMM GRAN# 0.17 X1000 (0.0-0.04); LYMPH# 1.45 X1000 (1.2-3.4); LYMPH% 17.2 % (20.5-51.1); MANUAL DIFF NEEDED? YES; MCH 28.8 PG (27-31); MCHC 31.5 g/dL (33-37); MCV 91.3 FL (81-99); MONO# 0.87 X1000 (0.11-0.59); MONO% 10.3 % (1.7-9.3); MPV 8.2 FL (7.4-10.4); PLT 347 X1000 (130-400); RBC 2.64 XMIL (4.2-5.4)
[2016-05-18 06:45] LABS: AGAP 9; BUN 8 mg/dL (8-22); CALCIUM 7.5 mg/dL (8.8-10.2); CHLORIDE 99 mmol/L (98-107); COSMO 269; POTASSIUM 4.5 mmol/L (3.5-5.1); SODIUM 135 mmol/L (136-145); TCO2 27 mmol/L (25-35)
[2016-05-18 07:12] LABS: BANDS 3 % (0-1); LYMPHS 7 % (21-51); MONO 5 % (1-9); NRBC 1 % (0-0)
[2016-05-18 07:14] LABS: HYPOCHROM 1+; POLYCHROM 1+
[2016-05-18 07:15] LABS: LARGE PLATELETS OCCASIONAL
[2016-05-18] MEDS: CLINIMIX E 4.25%-5% SOLUTION 1,000 ML IV SCH ×3 (08:23→20:16)
[2016-05-18] MEDS: ENTOCORT EC PO SCH (08:27)
[2016-05-18] MEDS: ICAR-C PO SCH ×2 (08:27→20:20)
[2016-05-18] MEDS: CULTURELLE PO SCH ×2 (08:28→20:20)
[2016-05-18] MEDS: CENTRUM SILVER PO SCH ×2 (08:28→20:20)
[2016-05-18] MEDS: FOLIC ACID PO SCH (08:28)
[2016-05-18] MEDS: DELZICOL PO SCH ×2 (08:29→20:20)
[2016-05-18] MEDS: MYCOSTATIN SUSP PO SCH ×5 (08:33→20:21)
[2016-05-18] MEDS: SODIUM CHLORIDE 0.9% INJ SCH ×2 (11:38→23:51)
[2016-05-18] MEDS: PROTONIX IV SCH ×2 (11:38→23:51)
[2016-05-18] MEDS ORDERED: EPOGEN SUBQ ONE (13:01)
--- NOTE | 2016-05-18 13:20 | PROGRESS NOTE ---
DATE: 05/18/2016 SUBJECTIVE: The patient states that she feels a little bit better today. She does report that she still has a little bit of blood whenever she has a bowel movement. OBJECTIVE: Vital Signs: Temperature 98.3 degrees, blood pressure 106/61, heart rate 72, respirations 18, O2 saturation is 100% on room air. General: This is a middle-aged female, lying in bed in no acute distress. HEENT: Head is normocephalic, atraumatic. Heart: S1 and S2 normal. Regular rate and rhythm. Lungs: Clear to auscultation bilaterally. No wheezes. No rales. No rhonchi. Abdomen: Positive bowel sounds. Soft, nontender, nondistended. Extremities: No edema. No cyanosis. Neurologic: The patient is alert oriented x3. LABORATORIES: White blood cell count 8.4, hemoglobin 7.6, hematocrit 24, platelets 347,000. Sodium 135, potassium 4.5, chloride 99, CO2 of 27, BUN 8, creatinine 0.3, glucose 109, calcium 7.5. ASSESSMENT AND PLAN: 1. Severe ulcerative colitis flare. Continue on IV steroids, IV antibiotics, and mesalamine. Gastroenterology is following. 2. Iron-deficiency anemia. The patient's hemoglobin and hematocrit have dropped. The patient is currently receiving iron infusions. Dr. Pickard is following. 3. Severe protein calorie malnutrition. We will consult the dietitian for further dietary recommendations. cc: Maile Beltrán MD
[2016-05-19] MEDS: NORCO-10 PO PRN ×4 (03:04→20:51)
[2016-05-19] MEDS: SOLU-MEDROL IV SCH ×3 (03:05→20:02)
[2016-05-19] MEDS: ZOSYN 3.375 GM/NS 50 ML IV SCH ×4 (03:05→20:01)
[2016-05-19] MEDS: CLINIMIX E 4.25%-5% SOLUTION 1,000 ML IV SCH ×4 (04:57→20:52)
[2016-05-19] MEDS: DELZICOL PO SCH ×2 (08:21→20:02)
[2016-05-19] MEDS: ENTOCORT EC PO SCH (08:22)
[2016-05-19] MEDS: CULTURELLE PO SCH ×2 (08:22→20:02)
[2016-05-19] MEDS: CENTRUM SILVER PO SCH ×2 (08:22→20:01)
[2016-05-19] MEDS: ICAR-C PO SCH ×2 (08:23→20:01)
[2016-05-19] MEDS: MYCOSTATIN SUSP PO SCH ×4 (08:23→20:01)
[2016-05-19] MEDS: FOLIC ACID PO SCH (08:23)
[2016-05-19 09:37] LABS: HEMATOCRIT 27.3 % (37.0-47.0); HEMOGLOBIN 8.5 g/dL (12.0-16.0); MCH 29.1 PG (27-31); MCHC 31.1 g/dL (33-37); MCV 93.5 FL (81-99); MPV 8.4 FL (7.4-10.4); RBC 2.92 XMIL (4.2-5.4)
[2016-05-19 10:05] LABS: AGAP 11; BUN 11 mg/dL (8-22); CALCIUM 7.6 mg/dL (8.8-10.2); CHLORIDE 98 mmol/L (98-107); COSMO 269; POTASSIUM 4.5 mmol/L (3.5-5.1); SODIUM 132 mmol/L (136-145); TCO2 23 mmol/L (25-35)
[2016-05-19] MEDS: SODIUM CHLORIDE 0.9% INJ SCH ×2 (11:52→20:02)
[2016-05-19] MEDS: PROTONIX IV SCH ×2 (11:52→20:02)
--- NOTE | 2016-05-19 12:45 | PROGRESS NOTE ---
DATE: 05/19/2016 SUBJECTIVE: The patient says that she feels better today. She states that she did not notice any blood in her bowel movement this morning. OBJECTIVE: Vital Signs: Temperature 98.3 degrees, blood pressure 104/65, heart rate 68, respirations 16, O2 saturations 99% on room air. General: This is a middle-aged female, sitting up in bed, in no acute distress. Head: Normocephalic atraumatic. Heart: S1, S2. Normal. Regular rate and rhythm. Lungs: Clear to auscultation bilaterally. No wheezes, no rales. No rhonchi. Abdomen: Positive bowel sounds. Soft, nontender, nondistended. Extremities: No edema. No cyanosis. No calf tenderness. LABS: White blood cell count 9.1, hemoglobin 8.5, hematocrit 27, platelets 361,000. Sodium 132, potassium 4.5, chloride 98, CO2 28, BUN 11, creatinine 0.3. Glucose 190. Calcium 7.6. ASSESSMENT AND PLAN: 1. Severe ulcerative colitis flare. Continue on IV steroids, IV antibiotics and mesalamine. Further management as per the civil engineering designer. 2. Iron deficiency anemia. The patient's hemoglobin and hematocrit is improved today. She was given a dose of Epogen yesterday. Hematology is following. 3. Severe protein calorie malnutrition. Continue with the dietitian recommendations. cc: Maile Beltrán MD
--- NOTE | 2016-05-19 13:38 | PROGRESS NOTE ---
DATE: 05/19/2016 SUBJECTIVE: Patient currently resting in bed. She is feeling better. Hematocrit has improved to 27%. She denies any nausea or vomiting, denies any worsening abdominal pain. She had 1 bowel movement today, which was soft with no visible blood. She denies any fevers, rigors, chills. OBJECTIVE: Vital Signs: Temperature 98.3 degrees, pulse rate of 68, respiratory rate 16, blood pressure 104/65, saturating 90% on room air. General: The patient is a middle-aged female, lying in bed in no acute distress. HEENT: Pale conjunctivae. No icterus. Neck: Supple. Abdomen: Soft, nontender, nondistended. Positive bowel sounds. No rebound or guarding. Extremities: No cyanosis, clubbing, or edema. Neurologic: Alert, awake, oriented. LABORATORIES: Her hemoglobin and hematocrit are 8.5 and 27 with a white count of 9.1, platelet count of 361,000. Sodium 132, potassium 4.5, chloride 98, bicarbonate 23, anion gap 11, BUN of 11, creatinine 0.8, glucose of 190, calcium 7.6. Stool culture is negative, and stool for C. difficile toxin is negative. IMPRESSION AND PLAN: 1. Severe ulcerative colitis involving the entire colon diagnosed in April 2016. Will switch the Solu-Medrol to oral prednisone on discharge. On discharge, she will need prednisone 40 mg once daily for 10 days, then wean down to 30 mg once daily for 10 more days, then wean down to 20 mg once daily for 10 days, and then 10 mg once daily for 10 days. Along with that, the patient will need to be on mesalamine 400 mg p.o. b.i.d. Will keep the patient on Centrum Silver once daily and iron C1 capsule p.o. b.i.d. We will also give her Levaquin and Flagyl for 7 more days. 2. Anemia. The patient is a Bahai. Her hematocrit is improving. She will continue to follow up with Dr. Pickard for iron infusions. 3. Left ovarian complicated cyst, being followed by the primary team. 4. Gastrointestinal prophylaxis with PPIs to continue. The above plan was discussed with the patient and all questions were answered. cc: Isaac Wick MD
[2016-05-20] MEDS: PROTONIX IV SCH ×4 (02:10→22:27)
[2016-05-20] MEDS: CLINIMIX E 4.25%-5% SOLUTION 1,000 ML IV SCH ×3 (02:10→18:33)
[2016-05-20] MEDS: NORCO-10 PO PRN ×3 (02:30→20:38)
[2016-05-20] MEDS: SOLU-MEDROL IV SCH ×4 (02:30→20:38)
[2016-05-20] MEDS: ZOSYN 3.375 GM/NS 50 ML IV SCH ×4 (02:30→20:37)
[2016-05-20 06:42] LABS: HEMATOCRIT 28.5 % (37.0-47.0); MCH 29.6 PG (27-31); MCHC 31.6 g/dL (33-37); MCV 93.8 FL (81-99); MPV 8.5 FL (7.4-10.4); RBC 3.04 XMIL (4.2-5.4)
[2016-05-20 06:51] LABS: AGAP 11; BUN 9 mg/dL (8-22); CALCIUM 7.9 mg/dL (8.8-10.2); CHLORIDE 99 mmol/L (98-107); COSMO 271; POTASSIUM 4.8 mmol/L (3.5-5.1); SODIUM 135 mmol/L (136-145); TCO2 25 mmol/L (25-35)
[2016-05-20] MEDS: DELZICOL PO SCH ×3 (09:15→22:23)
[2016-05-20] MEDS: ENTOCORT EC PO SCH (09:15)
[2016-05-20] MEDS: CENTRUM SILVER PO SCH ×3 (09:15→22:23)
[2016-05-20] MEDS: ICAR-C PO SCH ×2 (09:15→20:38)
[2016-05-20] MEDS: FOLIC ACID PO SCH (09:15)
[2016-05-20] MEDS: MYCOSTATIN SUSP PO SCH ×4 (09:16→22:21)
[2016-05-20] MEDS: CULTURELLE PO SCH ×3 (09:16→22:23)
[2016-05-20] MEDS: SODIUM CHLORIDE 0.9% INJ SCH ×2 (11:55→20:37)
--- NOTE | 2016-05-20 13:01 | PROGRESS NOTE ---
DATE: 05/20/2016 SUBJECTIVE: Patient is resting in bed. She is doing better. Her abdominal pain has improved. She had only 2 bowel movements today which were mushy but no visible blood. She denies any nausea, vomiting, fevers, rigors, chills. OBJECTIVE: Vital signs: Temperature 98.1 degrees, pulse of 84, respiratory 16, blood pressure 107/64, saturating 98% room air. General Appearance: Moderately built, moderately nourished, lying in bed, in no acute distress. HEENT: Mild pallor. No icterus. Neck: Supple. Abdomen: Soft, nontender, nondistended. Bowel sounds are noted. No rebound. Extremities: No cyanosis, clubbing, edema. Neurologic: Alert, awake, oriented. LABS: Hemoglobin and hematocrit are 9 and 28.5, white count of 14.07, platelet count of 384,000. Sodium 135, potassium 4.8, chloride 99, bicarb 25, anion gap 11, BUN of 9, creatinine 0.8, glucose of 138, calcium is 7.9. IMPRESSION AND PLAN: 1. Ulcerative colitis involving the entire colon, diagnosed in April 2016. On discharge patient will be on prednisone 40 mg once daily for 10 days, then transition to 30 mg once daily for 10 days, then transition to 20 mg once daily for 10 days, and then 10 mg once daily for 10 days, mesalamine 400 mg p.o. b.i.d., multivitamin once daily, Iron-C b.i.d. for 3 months, Prilosec 20 mg once daily, Culturelle 1 capsule p.o. b.i.d. for 6 weeks, Levaquin and Flagyl for 7 days. 2. Anemia. The patient's hematocrit is improving. Patient is on IV iron and oral iron. She is a Yazdanism. She will follow Dr. Pickard as an outpatient for IV iron infusions. 3. Left ovarian complicated cyst. Per the primary team. 4. Gastrointestinal prophylaxis with PPIs to continue. The above plan was discussed with the patient. All questions were answered. cc: MD Maile Arnold MD Naveen T. Lobo, MD
--- NOTE | 2016-05-20 13:36 | PROGRESS NOTE ---
DATE: 05/20/2016 SUBJECTIVE: The patient states that she feels a lot better today. Her bowel movements no longer have blood in them. OBJECTIVE: Vital Signs: Temperature 98 degrees, blood pressure 107/64, heart rate 84, respirations 16, O2 saturations 98% on room air. General: This is a middle-aged female, sitting in bed in no acute distress. Head: Normocephalic, atraumatic. Heart: S1, S2. Normal. Regular rate and rhythm. Lungs: Clear to auscultation bilaterally. No wheezes, no rales. No rhonchi. Abdomen: Positive bowel sounds. Soft, nontender, nondistended. Extremities: No edema. No cyanosis. LABORATORY STUDIES: 1. White blood cell count 4.2, hemoglobin 9, hematocrit 28, platelets 384. 2. Sodium 135, potassium 4.8, chloride 99, CO2 25, BUN 9, creatinine 0.3, glucose 133, calcium 7.9. ASSESSMENT AND PLAN: 1. Severe ulcerative colitis flare. This appears to be improving slowly. Continue on the current medications as directed by the band machine operator. 2. Iron-deficiency anemia. This improved. The patient will follow up with Dr. Pickard upon discharge from the hospital. 3. Severe protein calorie malnutrition. The patient has been encouraged to increase her oral intake. We will start the patient on a gastrointestinal soft diet. 4. Ovarian mass versus cyst. Will refer the patient to a creative writing english professor for further assessment. DISPOSITION: Will discharge the patient once cleared by the band machine operator. cc: Maile Beltrán MD
[2016-05-21] MEDS: ZOSYN 3.375 GM/NS 50 ML IV SCH ×4 (04:43→23:40)
[2016-05-21] MEDS: CLINIMIX E 4.25%-5% SOLUTION 1,000 ML IV SCH ×2 (04:44→17:07)
[2016-05-21] MEDS: SOLU-MEDROL IV SCH ×3 (04:44→23:39)
[2016-05-21 06:38] LABS: HEMATOCRIT 28.5 % (37.0-47.0); HEMOGLOBIN 9.4 g/dL (12.0-16.0); MCV 91.1 FL (81-99); MPV 8.2 FL (7.4-10.4); RBC 3.13 XMIL (4.2-5.4)
[2016-05-21] MEDS: NORCO-10 PO PRN (07:40)
[2016-05-21] MEDS: MYLICON PO SCH ×4 (09:00→23:40)
[2016-05-21] MEDS: ENTOCORT EC PO SCH (09:12)
[2016-05-21] MEDS: CULTURELLE PO SCH ×2 (09:12→23:39)
[2016-05-21] MEDS: DELZICOL PO SCH ×2 (09:13→23:39)
[2016-05-21] MEDS: CENTRUM SILVER PO SCH ×2 (09:13→23:39)
[2016-05-21] MEDS: ICAR-C PO SCH ×2 (09:13→23:39)
[2016-05-21] MEDS: FOLIC ACID PO SCH (09:13)
[2016-05-21] MEDS: MYCOSTATIN SUSP PO SCH ×5 (10:00→23:40)
[2016-05-21] MEDS: PROTONIX IV SCH ×2 (12:05→23:39)
--- NOTE | 2016-05-21 13:32 | PROGRESS NOTE ---
DATE: 05/21/2016 SUBJECTIVE: The patient complains of chest pain, but otherwise states that she is having regular bowel movements and is tolerating a soft GI diet. OBJECTIVE: Vital Signs: Temperature 98 degrees, blood pressure 101/55, heart rate 97, respirations 14, and O2 saturations 100% on room air. General: This is a middle-aged female, lying in bed in no acute distress. Head: Normocephalic, atraumatic. Heart: S1, S2. Normal. Regular rate and rhythm. Lungs: Clear to auscultation bilaterally. Abdomen: Positive bowel sounds. Soft, nontender, nondistended. Extremities: No edema. No cyanosis. No calf tenderness. Neurological: Patient is alert and oriented x3. LABS: White blood cell count 10, hemoglobin 9.4, hematocrit 28, platelets 349. ASSESSMENT AND PLAN: 1. Severe ulcerative colitis flare. We will continue on the current medications as directed by the meter installer. 2. Iron-deficiency anemia. Stable. 3. Severe protein calorie malnutrition. Continue on the current diet. 4. Ovarian mass versus complex cyst. The patient will follow up with Dr. Lomas as outpatient for further assessment of this finding. DISPOSITION: We will plan to discharge the patient home once cleared by the meter installer. cc: Maile Beltrán MD
[2016-05-22] MEDS: CLINIMIX E 4.25%-5% SOLUTION 1,000 ML IV SCH ×3 (02:36→22:03)
[2016-05-22] MEDS: ZOSYN 3.375 GM/NS 50 ML IV SCH ×3 (06:27→17:17)
[2016-05-22 06:49] LABS: HEMATOCRIT 31.1 % (37.0-47.0); HEMOGLOBIN 9.8 g/dL (12.0-16.0); MCH 29.8 PG (27-31); MCHC 31.5 g/dL (33-37); MCV 94.5 FL (81-99); MPV 8.7 FL (7.4-10.4); RBC 3.29 XMIL (4.2-5.4)
[2016-05-22] MEDS: ICAR-C PO SCH ×2 (08:07→20:39)
[2016-05-22] MEDS: ENTOCORT EC PO SCH (08:07)
[2016-05-22] MEDS: SOLU-MEDROL IV SCH ×2 (08:07→17:17)
[2016-05-22] MEDS: CULTURELLE PO SCH ×2 (08:07→20:39)
[2016-05-22] MEDS: FOLIC ACID PO SCH (08:08)
[2016-05-22] MEDS: DELZICOL PO SCH ×2 (08:08→20:39)
[2016-05-22] MEDS: MYLICON PO SCH ×5 (08:08→20:39)
[2016-05-22] MEDS: CENTRUM SILVER PO SCH ×2 (08:08→20:39)
[2016-05-22] MEDS: SODIUM CHLORIDE 0.9% INJ SCH (11:36)
[2016-05-22] MEDS: MYCOSTATIN SUSP PO SCH ×4 (11:36→20:41)
[2016-05-22] MEDS: PROTONIX IV SCH (11:36)
--- NOTE | 2016-05-22 14:31 | PROGRESS NOTE ---
DATE: 05/22/2016 SUBJECTIVE: The patient states that she is doing well today. No acute events noted overnight. She is having regular bowel movements. No nausea. No vomiting. OBJECTIVE: Vital Signs: Temperature 98 degrees, blood pressure 104/67, heart rate 80, respirations 12, O2 saturation is 100% on room air. General: This is a middle-aged female, sitting in bed, in no acute distress. Head: Normocephalic, atraumatic. Heart: S1, S2. Normal. Regular rate and rhythm. Lungs: Clear to auscultation bilaterally. No wheezes. No rales. No rhonchi. Abdomen: Positive bowel sounds. Soft, nontender, nondistended. Extremities: No edema. No cyanosis. No calf tenderness. Neurologic: The patient is alert and oriented x3. LABS: White blood cell count 7.8, hemoglobin 9.8, hematocrit 31, platelets 362,000. ASSESSMENT AND PLAN: 1. Ulcerative colitis flare. Improved. Continue on the current medications. 2. Iron-deficiency anemia. Stable. 3. Ovarian mass versus complex ovarian cyst. The patient will follow up with Dr. Lomas as an outpatient for further assessment. 4. Disposition. We will plan to discharge the patient home once cleared by the customer operations manager. cc: Maile Beltrán MD
[2016-05-22] MEDS: ZOFRAN PO PRN (16:00)
[2016-05-23] MEDS: SODIUM CHLORIDE 0.9% INJ SCH ×3 (00:10→21:21)
[2016-05-23] MEDS: ZOSYN 3.375 GM/NS 50 ML IV SCH ×5 (00:10→23:31)
[2016-05-23] MEDS: PROTONIX IV SCH ×3 (00:10→21:21)
[2016-05-23] MEDS: SOLU-MEDROL IV SCH ×4 (00:10→23:31)
[2016-05-23] MEDS: MYLICON PO SCH ×5 (00:59→21:20)
[2016-05-23 07:30] LABS: AGAP 12; BUN 11 mg/dL (8-22); CALCIUM 7.9 mg/dL (8.8-10.2); CHLORIDE 100 mmol/L (98-107); COSMO 268; POTASSIUM 4.3 mmol/L (3.5-5.1); SODIUM 133 mmol/L (136-145); TCO2 21 mmol/L (25-35)
[2016-05-23 07:34] LABS: BASO% 0.5 % (0.0-0.8); HEMATOCRIT 29.8 % (37.0-47.0); HEMOGLOBIN 9.4 g/dL (12.0-16.0); IMM GRAN# 0.31 X1000 (0.0-0.04); LYMPH# 1.36 X1000 (1.2-3.4); LYMPH% 13.4 % (20.5-51.1); MANUAL DIFF NEEDED? YES; MCH 29.7 PG (27-31); MCHC 31.5 g/dL (33-37); MCV 94.3 FL (81-99); MONO# 0.54 X1000 (0.11-0.59); MONO% 5.3 % (1.7-9.3); MPV 8.7 FL (7.4-10.4); NEUT% 77.8 % (42.2-75.2); PLT 327 X1000 (130-400); RBC 3.16 XMIL (4.2-5.4)
[2016-05-23] MEDS: CLINIMIX E 4.25%-5% SOLUTION 1,000 ML IV SCH (08:07)
[2016-05-23] MEDS: DELZICOL PO SCH ×2 (08:11→21:20)
[2016-05-23] MEDS: MYCOSTATIN SUSP PO SCH ×4 (08:11→21:21)
[2016-05-23] MEDS: FOLIC ACID PO SCH (08:11)
[2016-05-23] MEDS: ENTOCORT EC PO SCH (08:11)
[2016-05-23] MEDS: CULTURELLE PO SCH ×2 (08:11→21:20)
[2016-05-23] MEDS: CENTRUM SILVER PO SCH ×2 (08:11→21:20)
[2016-05-23] MEDS: ICAR-C PO SCH ×2 (08:11→21:21)
[2016-05-23 08:50] LABS: BANDS 6 % (0-1); LYMPHS 18 % (21-51); MONO 2 % (1-9)
--- NOTE | 2016-05-23 15:34 | PROGRESS NOTE ---
DATE: 05/23/2016 SUBJECTIVE: The patient states that she had a little bit of blood in her bowel movement yesterday evening but otherwise feels pretty good this morning. She still complains of gas discomfort. OBJECTIVE: Vital Signs: Temperature 97 degrees, blood pressure 96/61, heart rate 70, respirations 12, O2 saturations 100% on room air. General: This is a middle-aged female sitting in bed in no acute distress. Head: Normocephalic, atraumatic. Heart: S1, S2. Normal. Regular rate and rhythm. Lungs: Clear to auscultation bilaterally. No wheezes, no rales. No rhonchi. Abdomen: Positive bowel sounds. Soft, nontender, nondistended. Extremities: No edema. No cyanosis. No calf tenderness. Neurologic: The patient is alert oriented x3. LABORATORY: Hemoglobin 9.4, hematocrit 29, white blood cell count 10. ASSESSMENT AND PLAN: 1. Ulcerative colitis flare. Continue on the current treatment regimen. GI is following. 2. Iron-deficiency anemia. The patient's hemoglobin and hematocrit are stable. Continue on iron supplementation. 3. Ovarian mass versus complex cyst. The patient will follow up with Dr. Lomas as an outpatient upon discharge. 4. Disposition. Will plan to discharge the patient home once cleared by the lean manufacturing specialist. cc: Maile Beltrán MD
[2016-05-23] MEDS: ZOFRAN PO PRN (15:35)
[2016-05-23] MEDS: ZOFRAN IV PRN (21:48)
[2016-05-24] MEDS: PROTONIX IV SCH ×2 (05:37→12:27)
[2016-05-24] MEDS: ZOSYN 3.375 GM/NS 50 ML IV SCH ×2 (05:50→12:27)
[2016-05-24 07:07] LABS: BASO% 0.5 % (0.0-0.8); HEMATOCRIT 33.6 % (37.0-47.0); HEMOGLOBIN 10.5 g/dL (12.0-16.0); IMM GRAN# 0.36 X1000 (0.0-0.04); LYMPH# 1.92 X1000 (1.2-3.4); MANUAL DIFF NEEDED? YES; MCHC 31.3 g/dL (33-37); MONO# 0.67 X1000 (0.11-0.59); MONO% 5.6 % (1.7-9.3); MPV 8.9 FL (7.4-10.4); NEUT% 74.9 % (42.2-75.2); PLT 404 X1000 (130-400)
[2016-05-24 07:14] LABS: AGAP 15; BUN 10 mg/dL (8-22); CALCIUM 8.7 mg/dL (8.8-10.2); CHLORIDE 98 mmol/L (98-107); COSMO 268; SODIUM 134 mmol/L (136-145); TCO2 21 mmol/L (25-35)
[2016-05-24 07:31] LABS: BANDS 12 % (0-1); LYMPHS 14 % (21-51); MONO 2 % (1-9)
[2016-05-24] MEDS: ICAR-C PO SCH (08:19)
[2016-05-24] MEDS: CENTRUM SILVER PO SCH (08:19)
[2016-05-24] MEDS: DELZICOL PO SCH (08:20)
[2016-05-24] MEDS: CULTURELLE PO SCH (08:20)
[2016-05-24] MEDS: FOLIC ACID PO SCH (08:20)
[2016-05-24] MEDS: SOLU-MEDROL IV SCH (08:20)
[2016-05-24] MEDS: ENTOCORT EC PO SCH (08:20)
[2016-05-24] MEDS: MYLICON PO SCH ×2 (08:20→12:27)
[2016-05-24] MEDS: MYCOSTATIN SUSP PO SCH ×2 (08:21→16:07)
[2016-05-24 11:37] VITALS: BP 99/65
[2016-05-24] MEDS: SODIUM CHLORIDE 0.9% INJ SCH (12:27)
--- NOTE | 2016-05-24 12:41 | PROGRESS NOTE ---
DATE: 05/24/2016 SUBJECTIVE: The patient is resting in a chair. She denies any new complaints. She denies any fever and chills. She denies any nausea, vomiting, abdominal pain and her diarrhea has improved. She had a last bowel movement today which was soft and formed. She was able to keep a meal down. OBJECTIVE: Vital Signs: Temperature 97.8 degrees, pulse rate 76, respiratory rate 16, blood pressure of 99/65. Saturating 100% on room air. General Appearance: Moderately nourished, sitting in chair, in no acute distress. HEENT: Mild pallor. No icterus. Pupils equal, reactive to light. Neck: Supple. Abdomen: Soft, nontender, nondistended. Bowel sounds. No rebound. No guarding. Extremities: No cyanosis, clubbing, edema. Neurologic: She is alert, awake, oriented. LABORATORY DATA: Hemoglobin and hematocrit is 10.5, 33.6, white count of 12.03 , platelet count of 404,000. Sodium 130, potassium 5, chloride 98, bicarb 21, anion gap of 15, BUN of 10, creatinine 0.5, glucose of 110, calcium 8.7. IMPRESSION/PLAN: 1. Ulcerative colitis/srivastava colitis. I discussed her discharge medications with the patient and with Dr. Goodrich. She will continue on prednisone taper of 40 mg once daily x10 days then transitioned down to 0 over a total of 40 days. She will be on mesalamine 4 mg p.o. b.i.d. She will be on Culturelle 1 capsule p.o. b.i.d. for 6 weeks. She will be on Prilosec 20 mg daily. She will be on multivitamin once daily and on Iron C b.i.d. We will keep her on Levaquin and Flagyl for 3-4 more days. 2. Anemia. Patient follow with Dr. Pickard for IV iron infusions. 3. GI prophylaxis. Prilosec as above. 4. The patient follow up with me in the clinic in 1 month after discharge. cc: MD Henok Arnold MD Naveen T. Lobo, MD MTDD
[2016-05-24] MEDS ORDERED: CIPRO PO SCH (21:00)
--- NOTE | 2016-05-25 08:28 | DISCHARGE SUMMARY ---
ADMISSION DATE: 05/14/2016 DISCHARGE DATE: 05/24/2016 CONSULTATIONS: Dr. Isaac Wick with gastroenterology. PERTINENT PROCEDURES: Abdomen and pelvis CT showed apparent colitis, stable since 05/02/2016, left ovarian mass or complicated cyst also stable. DISCHARGE DIAGNOSES: 1. Ulcerative colitis flare. Continue with antibiotics. Follow up with Dr. Wick as indicated. 2. Iron-deficiency anemia. Hemoglobin and hematocrit stable. Continue on iron supplementation. 3. Ovarian mass versus complex cyst. Patient will need to follow up with Dr. Lomas as an outpatient upon discharge. HOSPITAL COURSE: Briefly, Ms. Echols is a 46-year-old female who carries a past medical history of ulcerative colitis. Otherwise, no significant past medical history other than nausea, vomiting, and diarrhea with blood in her stools previous to her diagnosis. She was last admitted to our service on 05/02/2016, admitted before that on 04/23/2016. She has been diagnosed with ulcerative colitis and sees Dr. Wick. She was set to see Dr. Pickard for treatment of her anemia to build up her blood count. She is a Islam so will not take blood products. However, she is willing to take Epogen and Venofer as well as Cell Saver. Patient came to the ED after being discharged from the hospital for the last few days. Her condition continued to decline. According to the daughter, she has ultimately been bedbound and has not been able to the eat more than a very small amount of food. She was not taking in a proper amount of liquids. She started having some increased sharp left-sided pain in her abdomen and continued to have zaida red blood in her stools. The patient was readmitted with ulcerative colitis with a GI consult. She was placed on IV Zosyn as well as IV fluids, Culturelle, and Zofran as well as IV pain medication. Her H and H were trended closely. Also obtained stool cultures as well as consulting Dr. Pickard to help us with the patient's blood count secondary to her being a Jehovah Witness. She was also placed on IV steroids and mesalamine twice a day, and Entocort daily. Secondary to her severe protein calorie malnutrition, dietary was consulted for their recommendation. The patient did receive Epogen as per Dr. Pickard. Patient was tolerating her diet. She was having regular bowel movements. Dr. Wick discussed with Dr. Goodrich that she will continue with the prednisone taper, Culturelle, Prilosec, and the Icar-C, and mesalamine, as well as p.o. antibiotics, and will follow with Dr. Pickard for IV iron infusion and will follow up with Dr. Pickard in 1 month. Vital signs at time of her discharge, temperature is 97.8 degrees, heart rate 76, respirations 16, blood pressure 99/65, O2 is 100% on room air. DISCHARGE DIET: GI soft. DISCHARGE MEDICATIONS: 1. Cipro 500 mg p.o. b.i.d. for 5 days. 2. Nexium 22.3 mg p.o. daily. 3. Folic acid 1 mg p.o. daily. 4. Cayey 10/325 one each p.o. q.6 hours p.r.n. 5. Icar-C one each p.o. b.i.d. 6. Culturelle one each p.o. b.i.d. 7. Maalox Plus liquid 30 mL p.o. t.i.d. p.r.n. 8. Flagyl 500 mg p.o. t.i.d. 9. Centrum Silver one each p.o. b.i.d. 10. Zofran 4 mg p.o. 4 times a day p.r.n. nausea. 11. Prednisone 10 mg p.o. daily. She will take 4 tablets p.o. daily for 3 days, then 30 mg p.o. for 7 days, then 20 mg for 7 days, and then 10 mg p.o. daily for 7 days. FOLLOWUP: The patient is being discharged home with family. She will follow up with Dr. Pickard in 3 weeks, Dr. Wick in 2 weeks, and Dr. Lomas in 1 week, with SHEET COMBINING OPERATOR in reference to an ovarian mass versus a complex cyst. The patient can return to the ED for any worsening of symptoms. She will continue to follow a GI soft diet until she follows up with Dr. Wick. She is to continue to take all her new medications as well as her antibiotics, along with steroid taper. Patient can return to the ED for any worsening of symptoms. Discharge time, 30 minutes. Dictated by NASIM Zee for Henok Goodrich MD cc: Henok Goodrich MD
--- NOTE | 2016-06-27 11:12 | PROGRESS NOTE ---
DATE: 06/27/2016 SUBJECTIVE: The patient is feeling a whole lot better. Her diarrhea has come down. She only had 2 bowel movements and very little blood. No fever or chills. She is feeling hungry. OBJECTIVE: Vital Signs: Blood pressure 100/60, pulse of 70, respirations 14, temperature 98 degrees, O2 saturation 100% on room air. General: Pale looking lady in no acute distress. She does look better than yesterday. HEENT: There is conjunctival pallor present. No scleral icterus. Neck: Supple. Trachea in the midline. Heart: Normal first and second heart sounds. Lungs: Clear. Abdomen: Diffusely tender on deep palpation. Better than yesterday. Bowel sounds present. No rebound or rigidity. Extremities: Pedal edema 2+. Neurological: No neurologic deficit. Laboratory Data: White count 6.92, hemoglobin 8, hematocrit 24.5 which is lower than admission, platelets 312,000. Sodium 132. BUN and creatinine are normal. IMPRESSION AND PLAN: A 46-year-old lady with: 1. Ulcerative colitis for which she is responding to intravenous steroids. 2. Rectal bleeding which is getting better. 3. Anemia looks worse but most likely this is due to rehydration. 4. Diarrhea is better. 5. Abdominal pain, very little if any. 6. Nutritional problems. RECOMMENDATIONS: We will continue the current management. We will start her on full liquids. I have reassured and spent some time with her to tell her the importance of a closer followup and continue to treat this. She understands. cc: Good Cai MD
--- NOTE | 2016-06-27 15:54 | CONSULTATION ---
DATE OF CONSULTATION: 05/15/2016 REASON FOR CONSULTATION: Abdominal pain and rectal bleeding. HISTORY OF PRESENT ILLNESS: A 46-year-old lady who was admitted on 05/02/2016 with ulcerative colitis and she has been followed by Dr. Wick. she is Jehovah Witness and she has an appointment to see Dr. Pickard for the treatment of her anemia with iron transfusion. She is willing to take Epogen and we know as well as Cell Saver. The last few days she has been feeling worse. For some strange reason she is not on any maintenance medication. She has been in bed, not taking enough liquids and feeling weak and continues to have rectal bleeding. She was brought to the emergency room and admitted. PAST MEDICAL HISTORY: Ulcerative colitis. Otherwise, no history. PAST SURGICAL HISTORY: Tonsillectomy and adenoidectomy. SOCIAL HISTORY: She was a former smoker, but stopped. Does not smoke or any illegal drugs. FAMILY HISTORY: Positive for diabetes. No history of ulcerative colitis. ALLERGIES: None. HOME MEDICATION: Maalox. Culturelle. Icar C. Flagyl. Folic acid. Cipro. Prednisone 10 mg p.o. daily which she ran out. Centrum Silver. [place] 10 p.r.n. Nexium 24, 1 daily. Zofran 4 mg p.o. 4 times. REVIEW OF SYSTEMS: Fourteen point review of systems negative other than HPI. PHYSICAL EXAMINATION: Vital signs: Temperature 97.8 degrees, pulse 100, respiration 18, blood pressure 115/70, O2 saturation 100% on room air. General: A 46-year-old lady, laying in bed, appears to be quite weak, in no acute distress. HEENT: There is conjunctival pallor present. No scleral icterus. Neck: Supple. Trachea midline. Heart: Normal first and second heart sounds. Lungs: Clear. Abdomen: Soft, generally tender, more on the left side of the abdomen. Bowel sounds are present, hyperactive. Extremities: There is pedal edema in the lower extremities. Neurological: Alert, oriented, no focal deficit. Musculoskeletal: She does have weakness in the lower extremities. LABORATORY DATA: White count 10,000, hemoglobin 10, hematocrit 30.6, platelets 356,000. Sodium 132, chloride 92, BUN and creatinine normal. IMPRESSION AND PLAN: 1. Ulcerative colitis. The patient definitely is not on full treatment. She is taking Cipro and Flagyl as an outpatient and ran out of prednisone. 2. Rule out clostridia difficile because of the antibiotic use state. 3. Lower gastrointestinal bleeding. She is Jehovah Witness. We need to treat this adequately. 4. Anemia. 5. Deep vein thrombosis prophylaxis. I think she definitely needs intravenous steroids until we get her into remission quickly. We do have a problem with her being weak and unable to take any blood transfusion and her colitis is definitely not under control. We will continue to follow up and induce remission and then continue to follow her as an outpatient at a closer interval. cc: Good Cai MD
== END 2016-05-24 16:06 | disposition home or self-care (01) ==
LOC: ED 21:17 → 4N 23:31 → SUATTDRO 23:31
PROVIDERS: ATTEND Internal Medicine

== ENCOUNTER 2016-06-04 20:50 | Inpatient (IN) ==
[2016-06-04 23:55] LABS: BASO% 0.2 % (0.0-0.8); EOS# 0.03 X1000 (0.0-0.7); EOS% 0.4 % (0.0-10.0); HEMOGLOBIN 11.6 g/dL (12.0-16.0); IMM GRAN# 0.07 X1000 (0.0-0.04); IMM GRAN% 0.8 % (0.0-0.5); LYMPH# 1.73 X1000 (1.2-3.4); LYMPH% 20.7 % (20.5-51.1); MANUAL DIFF NEEDED? NO; MCH 31.3 PG (27-31); MCHC 33.1 g/dL (33-37); MCV 94.3 FL (81-99); MONO# 1.03 X1000 (0.11-0.59); MONO% 12.3 % (1.7-9.3); MPV 8.3 FL (7.4-10.4); NEUT% 65.6 % (42.2-75.2); PLT 372 X1000 (130-400); RBC 3.71 XMIL (4.2-5.4)
[2016-06-05 00:10] LABS: AGAP 14; ALBUMIN 2.9 g/dL (3.5-5.0); ALKALINE PHOSPHATASE 69 U/L (32-104); BUN 8 mg/dL (8-22); CALCIUM 8.5 mg/dL (8.8-10.2); CHLORIDE 91 mmol/L (98-107); COSMO 259; GOT 6 U/L (10-30); GPT 8 U/L (10-36); POTASSIUM 4.1 mmol/L (3.5-5.1); SODIUM 130 mmol/L (136-145); TCO2 25 mmol/L (25-35); TOTAL BILIRUBIN 0.49 mg/dL (0.20-1.00); TOTAL PROTEIN 5.7 g/dL (6.3-8.3)
[2016-06-05 00:39] LABS: INR 1.12; PROTIME 11.8 Seconds (9.2-11.7); PTT 29.6 Seconds (22.0-36.0)
[2016-06-05] MEDS ORDERED: NS 1,000 ML IV SCH (00:41)
[2016-06-05] MEDS ORDERED: MORPHINE IV ONE ×2 (00:41→15:32)
[2016-06-05 00:58] LABS: URINE SOURCE CLEAN CATCH
[2016-06-05 01:12] LABS: BILIRUBIN URINE NEGATIVE (NEGATIVE); BLOOD URINE NEGATIVE (NEGATIVE); COLOR ORANGE; GLUCOSE URINE NEGATIVE (NEGATIVE); LEUKOCYTES URINE TRACE (NEGATIVE); NITRITE URINE NEGATIVE (NEGATIVE); PROTEIN URINE 100 mg/dL (NEGATIVE); SP GRAVITY URINE 1.038; TURBIDITY URINE TURBID (CLEAR); UROBILINOGEN URINE 3 mg/dL (NORMAL)
[2016-06-05 01:15] LABS: UR EPITHELIAL CELLS >10 /HPF (<10); URINE BACTERIA NEGATIVE /HPF; URINE CULTURE NEEDED? YES; URINE MICRO REVIEW NEEDED? YES; URINE RBC <10 /HPF (<10)
[2016-06-05 01:23] LABS: URINE CASTS GRANULAR PRESENT
[2016-06-05 01:24] LABS: URINE CRYSTALS CA CARBONATE PRESENT
[2016-06-05 03:50] LABS: MAGNESIUM 1.8 mg/dL (1.5-2.7); PREALBUMIN 9.8 mg/dL (20-40)
[2016-06-05] MEDS ORDERED: ZOFRAN IV PRN (05:23)
[2016-06-05] MEDS ORDERED: SODIUM CHLORIDE 0.9% INJ SCH (05:23)
[2016-06-05] MEDS ORDERED: MORPHINE IV PRN ×2 (05:23→18:12)
[2016-06-05] MEDS ORDERED: PROTONIX IV SCH (05:23)
[2016-06-05] MEDS ORDERED: SOLU-MEDROL IV ONE (05:23)
--- NOTE | 2016-06-05 05:40 | HISTORY AND PHYSICAL ---
PRIMARY ELECTRONIC SCIENCE TEACHER: Isaac Wick MD CHIEF COMPLAINT: Bloody diarrhea and abdominal pain. HISTORY OF PRESENT ILLNESS: This is a 46-year-old female with past medical history of ulcerative colitis very well known to our service for many admissions. She was recently discharged on June 01 for same condition and was admitted twice in April for the same diagnosis. Last time she was here, she was given antibiotics and also she was given iron C capsules to be taken for 6 months. Patient reports that for the last 3 days, she started noticing loose stools and also some bloody stools. She reports that she had between 5 and 10 times bloody stools with [id number] abdominal pain, mostly located in the periumbilical area and epigastric area. The patient also reports feeling nauseated after she just vomited once daily for the last 3 days also. Patient also reports that since January when she started having those episodes of ulcerative colitis flare up, she has lost in total 60 pounds unintentionally. We are going to admit this patient to the hospital and consult GI for further evaluation and also we are going to consult General Surgery for possible intervention here and considering that this patient is not responding to her current treatment. PAST MEDICAL HISTORY: Ulcerative colitis. PAST SURGICAL HISTORY: Tonsillectomy and adenoidectomy. SOCIAL HISTORY: She lives with her . She used to smoke but she quit 15 years ago. She denies drinking any alcohol. FAMILY HISTORY: Diabetes in first-degree relatives. ALLERGIES: No known drug allergies. REVIEW OF SYSTEMS: Eleven systems were reviewed and all symptoms are related to H P. PHYSICAL EXAMINATION: VITAL SIGNS: Temperature 98.1 degrees, heart rate 92, respiratory rate 22, blood pressure 115/76, O2 saturation 100% on room air. GENERAL: This is a chronically ill-looking, frail 46-year-old female lying in bed, in no acute distress. HEENT: Head is normocephalic, atraumatic. Anicteric sclerae and pale conjunctivae. Mucous membranes moist. Pupils equal, round, and reactive to light and accommodation. NECK: Supple. No JVD noted. No carotid bruits. No lymphadenopathy. No thyromegaly. CARDIOVASCULAR: S1-S2 heard. No murmurs, gallops, or rubs. Regular rate and rhythm. RESPIRATORY: Clear bilaterally to auscultation. No work of breathing or using accessory muscles. ABDOMEN: Soft, but diffusely tender to palpation all abdomen but most noticeable in the periumbilical area and epigastric area. There is no signs of peritoneal irritation. No pulsatile mass. No organomegaly. EXTREMITIES: Two plus pitting edema in both lower extremities but peripheral pulses are present in both legs. NEUROLOGICAL: Patient alert oriented x3. Able to move 4 extremities. Cranial nerves 2-12 grossly normal. LABORATORY DATA: White cell count 8.36, hemoglobin 11.6, hematocrit 35.0, platelets 372,000. INR 1.12. BMP shows a sodium 130, creatinine 0.4 with ALT 6, AST 8. test negative. Urinalysis which shows mild urine leukocytes. ASSESSMENT AND PLAN: 1. Ulcerative colitis flare-up. Considering that this patient has had 3 admissions during the last 2 months for the same condition and actually the last admission was 10 days ago, I think we are going to consult General Surgery to see if this patient is amenable for any surgery. Also we will consult Dr. Vila from GI. We are going to start Solu-Medrol 40 mg IV 3 times per day, Protonix. Because the white cell count is okay, I do not think we need to order antibiotics. Also, we are going to check CBC and BMP daily. 2. Anemia of chronic disease. Patient is a Jehovah Witness. She will not receiving any blood transfusions. She is supposed to see Dr. Pickard in the office next week. At this time, I guess the hemoglobin is getting better, so we will check CBC daily and we will go from there. 3. Failure to thrive. As mentioned before, the patient has lost 60-70 pounds unintentionally, so we are going to check the albumin and we will see what GI has to say. 4. Deep vein thrombosis prophylaxis. cc: Ronnell Piña MD
[2016-06-05] MEDS: NS 1,000 ML IV SCH ×2 (05:41→17:10)
[2016-06-05 07:13] LABS: BASO% 0.3 % (0.0-0.8); EOS# 0.06 X1000 (0.0-0.7); EOS% 0.9 % (0.0-10.0); HEMATOCRIT 31.6 % (37.0-47.0); HEMOGLOBIN 10.3 g/dL (12.0-16.0); IMM GRAN# 0.05 X1000 (0.0-0.04); IMM GRAN% 0.7 % (0.0-0.5); LYMPH# 1.53 X1000 (1.2-3.4); LYMPH% 22.7 % (20.5-51.1); MANUAL DIFF NEEDED? YES; MCH 31.2 PG (27-31); MCHC 32.6 g/dL (33-37); MCV 95.8 FL (81-99); MONO% 11.9 % (1.7-9.3); MPV 8.6 FL (7.4-10.4); NEUT% 63.5 % (42.2-75.2); PLT 363 X1000 (130-400)
[2016-06-05 07:48] LABS: BANDS 26 % (0-1); LYMPHS 24 % (21-51); MONO 10 % (1-9)
--- NOTE | 2016-06-05 10:31 | Diag Imaging Result Document ---
PROCEDURE NAME: CT ABD/PELVIS W/ IV CONT ONLY - 06/05/2016 CT ABDOMEN AND PELVIS WITH INTRAVENOUS CONTRAST: TECHNIQUE: Dose reduction protocol. COMPARISON: 05/14/2016. FINDINGS: The lung bases are clear. There is fatty infiltration of the liver. Normal spleen, pancreas, gallbladder, adrenal glands, and kidneys. No hydronephrosis. Normal aorta. There is thickening of the colon throughout with mild adjacent inflammation. No free air. Normal appendix. No abscess. The urinary bladder is moderately distended and appears normal. Normal uterus and right ovary. The left ovary is prominent similar to the prior exam. IMPRESSION: 1. Persistent colitis. Findings actually are slightly less pronounced than on the prior exam. 2. No change in the enlarged left ovary. 3. Fatty infiltration of the liver. A preliminary report was given at 3:59 a.m.
[2016-06-05 10:45] LABS: URINE MICRO REVIEW NEEDED? NO; URINE SOURCE CLEAN CATCH
[2016-06-05 10:58] LABS: BILIRUBIN URINE NEGATIVE (NEGATIVE); BLOOD URINE NEGATIVE (NEGATIVE); COLOR YELLOW; GLUCOSE URINE NEGATIVE (NEGATIVE); LEUKOCYTES URINE TRACE (NEGATIVE); NITRITE URINE NEGATIVE (NEGATIVE); PROTEIN URINE NEGATIVE (NEGATIVE); TURBIDITY URINE CLEAR (CLEAR); UR EPITHELIAL CELLS <10 /HPF (<10); URINE BACTERIA 1+ /HPF; URINE CULTURE NEEDED? YES; URINE RBC <10 /HPF (<10); URINE WBC <10 /HPF (<10); UROBILINOGEN URINE NORMAL (NORMAL)
--- NOTE | 2016-06-05 11:00 | Diag Imaging Result Document ---
PROCEDURE NAME: US RENAL 2 (RETROPER) COMPLETE - 06/05/2016 RENAL ULTRASOUND: FINDINGS: The right kidney measures 12.5 x 4.6 x 4.6 cm. Normal renal echogenicity and cortical thickness. No renal stone or hydronephrosis. No renal mass. The left kidney measures 12.3 x 4.8 x 6.0 cm. Normal renal echogenicity and cortical thickness. No renal stone or hydronephrosis. No renal mass. The urinary bladder is not distended. Incidental note is made of 2.8 cm left ovarian cyst. IMPRESSION: Normal renal ultrasound. A preliminary report was given at 10:22 a.m.
--- NOTE | 2016-06-05 11:56 | CONSULTATION ---
DATE OF CONSULTATION: 06/05/2016 CHIEF COMPLAINT: Colitis. HISTORY: This is a 46-year-old lady with known ulcerative colitis followed by Dr. Wick. She had an exacerbation yesterday which she attributes to a particular capsule that she was taking. This generated some bloody loose stools. She came to the emergency department and was admitted. Today she feels much better with less tenderness. She has had no abdominal surgery. She has had a tonsillectomy and adenoidectomy in the past. MEDICATIONS: Include multivitamin, Centrum Silver 1 daily. Prednisone 10 mg daily. Delzicol 4 mg b.i.d. and Prilosec 20 mg daily. ALLERGIES: She has no known drug allergies. SOCIAL HISTORY: She is . She denies alcohol or smoking. FAMILY HISTORY: Pertinent for diabetes. REVIEW OF SYSTEMS: Pertinent as is noted above with the abdominal pain and diarrhea. PHYSICAL EXAMINATION: Vital Signs: Afebrile. Heart rate 76, respiratory rate 20, blood pressure 102/57. No cervical adenopathy. Lungs: Clear. Heart: Regular rate and rhythm. Abdomen: Soft and mildly tender. No peritoneal signs. Extremities: Femoral pulses are present. No peripheral edema. She is awake and alert. DIAGNOSTICS/LABS: White count 6700, hemoglobin 10.3. ASSESSMENT: Ulcerative colitis with slight exacerbation. No operative intervention is indicated at this time. PLAN: We will follow along in case we needed. cc: Wilfrido Topete MD
[2016-06-05] MEDS ORDERED: DELZICOL PO SCH (13:00)
--- NOTE | 2016-06-05 13:27 | CONSULTATION ---
DATE OF CONSULTATION: 06/05/2016 PRIMARY NEUROLOGY TEACHER: Dr. Isaac Wick MD. REASON FOR CONSULTATION: Ulcerative colitis. HISTORY: This is a 46-year-old white female, recently diagnosed with ulcerative colitis. She was discharged from the hospital a few days ago and readmitted to hospital after she presented to the emergency room with abdominal pain and bloody diarrhea. She tells me that she has been taking prednisone along with Delzicol and she was feeling better as far as the number of bowel movements, but she still had some bright red blood per rectum and occasional clots, but her major problem was that she was having significant abdominal pain. She attributed those pains to her medications and she thought Delzicol was breaking up into pieces and actually the shards of the pieces of her capsule were making her hurt. Although I tried to explain to her that this may not be the case, she was convinced that Delzicol was making her hurt worse, and she came to the emergency room, from where she was admitted. She denied any fever or chills. Has not had any nausea or vomiting. She had been taking nystatin and has not had any dysphagia or odynophagia. She denies any dysuria, polyuria, or hematuria. Her appetite has been good. She is eating well and since admission, when she had received IV hydration along with pain medication, her symptoms have improved. She is ambulating and has not had abdominal pain. She has not had abdominal pain, but continues to have diarrhea with some blood-tinged stool. PAST MEDICAL HISTORY: Nothing significant except for the recently diagnosed ulcerative colitis. PAST SURGICAL HISTORY: She had tonsillectomy and adenoidectomy. MEDICATION: Prior to hospitalization, she was on Delzicol, prednisone, and nystatin swish and swallow. She was also taking Centrum Silver and Prilosec 20 mg every day. SOCIAL HISTORY: She is , lives with his family. Does not smoke. Does not drink. Does not do illicit drugs. FAMILY HISTORY: Noncontributory. REVIEW OF SYSTEMS: As per HPI, as above. PHYSICAL EXAMINATION: General: A very pleasant white female. She is lying in bed comfortably and does not appear to be in distress. Vital Signs: She is afebrile with temperature 98.7 degrees, pulse 76 per minute, breathing at 20, blood pressure was 102/57. She weighs about 130 pounds. She is 5 feet 6 inches tall. HEENT: Head is atraumatic, normocephalic. Eyes: Conjunctivae normal. Sclerae anicteric. Nares are patent. No discharge noted. Mouth: Buccal mucosa is moist. Throat is normal. She has a whitish coating on her tongue. Neck: Supple. No lymphadenopathy or thyromegaly noted. Chest: Bilaterally symmetrical. It is moving with respirations. Breath sounds audible bilaterally. No rhonchi or crackles could be heard. Heart: S1 and S2 audible. No murmur could be appreciated. Abdomen: Flat, soft, nontender. I could not appreciate masses or visceromegaly. Bowel sounds are audible. Extremities: No pedal edema, cyanosis, or clubbing was noted. Central Nervous System: Grossly intact. No sensory or motor deficit. LABORATORIES: Reviewed, which showed WBC of 6.73, hemoglobin 10.3, hematocrit 31.6, with MCV of 95.8, platelets 363,000. PT 11.8, INR 1.12, PTT 29.6. Sodium 130, potassium 4.1, chloride 91, bicarbonate is 14, BUN is 8, creatinine 0.4, AST 6, ALT 8, C-reactive protein was slightly high at 37.65, albumin 2.9, total protein 5.7. Urinalysis essentially negative. IMPRESSION: Ulcerative colitis. She presented with abdominal pain and bloody diarrhea. Her symptoms have gotten worse because of the mesalamine itself. I have advised her to stay on prednisone 30 mg every day and will have to figure out the right mesalamine that she can tolerate or may have to choose other treatments, maybe biologic agents. In the meantime, I would continue symptomatic treatment for her pain and nausea, continue nystatin. I will give her a GI soft diet and see how she tolerates. If she does well today, she can be discharged to be followed up at Dr. Wick's office as soon as possible. I have advised her to call his office on Tuesday to get an early appointment to figure out treatment other than Delzicol while she continues to be on prednisone. I have explained the findings and plan to the patient and her friend who was present at the bedside. They understood and all their pertinent questions were answered. cc: SeanMD Isaac Sherman MD
[2016-06-05] MEDS: PREDNISONE PO SCH ×2 (13:58→17:10)
[2016-06-05] MEDS: MYCOSTATIN SUSP PO SCH ×3 (13:59→22:14)
[2016-06-05] MEDS ORDERED: SOLU-MEDROL IV SCH (14:00)
[2016-06-05] MEDS: BENTYL PO SCH ×2 (14:01→17:10)
--- NOTE | 2016-06-05 16:12 | PROGRESS NOTE ---
DATE: 06/05/2016 SUBJECTIVE: Today Ms. Echols referred to be having a little bit of abdominal discomfort especially after she ate some food. She also continues to have bowel movement with some blood. OBJECTIVE: Vitals: Blood pressure is 100/56, pulse of 82, respirations 20, temperature 97.9 degrees. General: Ms. Echols 46-year-old female. She was in bed in mild to moderate painful distress. HEENT: Mucosa is pink and moist. Anicteric. Acyanotic. Neck: Supple. Chest: Was clear. Cardiovascular: Regular rate and rhythm. Abdomen: Soft. Bowel sounds were present. Just slightly tender all over the abdominal wall but no guarding or rebound. SENIOR INFORMATION SECURITY ARCHITECT: Patient is alert, oriented x4. LABORATORY DATA: WBC 6.73, hemoglobin is 10.3, platelet count of 363,000, significantly patient has 26% of bands on the peripheral smear. C-reactive protein is 37.65. ASSESSMENT: 1. Ulcerative colitis flare. 2. Abdominal pain secondary to #1. 3. Protein calorie malnutrition likely due to the underlying inflammatory bowel disease. 4. Hyponatremia due to dehydration. Will continue with gentle hydration. 5. Bandemia. Patient does not really have a white count. However she has 26% of bands on the peripheral smear. Her pulse was extremely high when she came which could just be from dehydration. We are going to keep a very close eye on her white cell/the bands and her vitals. I will have very low threshold to start her on antibiotics if she starts to show any signs of toxicity. 6. For now patient has been switched to prednisone. Mesalamine has been discontinued because from the gastroenterology notes this actually makes her symptoms worse and there is the thought process of starting her on something else like an immunosuppressive therapy versus biologics. 7. We did send her stool to rule out infectious etiologies. cc: Guillermo Morin MD
[2016-06-06] MEDS: NS 1,000 ML IV SCH ×3 (01:44→23:23)
[2016-06-06] MEDS: MYCOSTATIN SUSP PO SCH ×5 (06:15→22:30)
[2016-06-06] MEDS: BENTYL PO SCH ×3 (06:15→15:41)
[2016-06-06] MEDS: PRILOSEC PO SCH (06:15)
[2016-06-06 07:14] LABS: AGAP 13; BUN 4 mg/dL (8-22); CALCIUM 7.9 mg/dL (8.8-10.2); CHLORIDE 100 mmol/L (98-107); COSMO 258; SODIUM 131 mmol/L (136-145); TCO2 18 mmol/L (25-35)
[2016-06-06 07:22] LABS: BASO% 0.4 % (0.0-0.8); EOS# 0.03 X1000 (0.0-0.7); EOS% 0.4 % (0.0-10.0); HEMATOCRIT 30.4 % (37.0-47.0); HEMOGLOBIN 9.6 g/dL (12.0-16.0); IMM GRAN% 1.4 % (0.0-0.5); LYMPH# 1.43 X1000 (1.2-3.4); LYMPH% 19.5 % (20.5-51.1); MANUAL DIFF NEEDED? YES; MCH 31.2 PG (27-31); MCHC 31.6 g/dL (33-37); MCV 98.7 FL (81-99); MONO# 0.84 X1000 (0.11-0.59); MONO% 11.5 % (1.7-9.3); MPV 8.1 FL (7.4-10.4); NEUT% 66.8 % (42.2-75.2); PLT 306 X1000 (130-400); RBC 3.08 XMIL (4.2-5.4)
[2016-06-06 08:09] LABS: BANDS 7 % (0-1); LYMPHS 20 % (21-51); MONO 8 % (1-9)
[2016-06-06] MEDS: PREDNISONE PO SCH (09:00)
--- NOTE | 2016-06-06 10:41 | PROGRESS NOTE ---
DATE: 06/06/2016 SUBJECTIVE: Today, Ms. Echols refers to be doing a whole lot better. She denies any pain in the abdomen. She does have diarrhea with blood. The patient had about 5 of these since 12 midnight. OBJECTIVE: Vital Signs: Blood pressure is 99/65, pulse of 74, respirations are 20, temperature is 98.4 degrees, patient is saturating 100% on room air. General Examination: Ms. Echols is a 46- year-old, female. She is in bed, does not seem to be in any distress. HEENT: Mucosa is pink and moist. Anicteric and acyanotic. Neck: Supple. Chest: Good air entry bilateral. No crepitations. No rhonchi. Cardiovascular: Regular rate and rhythm. Abdomen: Soft. Bowel sounds are present. No hepatosplenomegaly and nontender. PARTNER: Patient is alert and oriented x4. There is no focal neurological deficit. Laboratory Data: WBC 7.33, hemoglobin is 9.6, platelet count of 306,000. Chemistry is reviewed. Sodium is 131, potassium 4, chloride is 100, bicarb is 18. Prealbumin is 9.8 which is low. Vitamin D level is 6.3. ASSESSMENT: 1. Ulcerative colitis flare. Patient is currently on prednisone orally. She refers that mesalamine actually makes her symptoms worse so this has been withheld. We are pending her regular denture waxer, Dr. Wick, to make a decision on which disease modifying agent he would prefer to put the patient on. 2. Dehydration, clinically improving. 3. Hyponatremia, stable. 4. Bandemia is improving. We think this is related to the ulcerative flare. 5. Vitamin D deficiency. We will replace this. 6. Of note, patient's stool Clostridium difficile is negative. There is a lot of WBC. The stool culture is still pending. PLAN: In general, I think the patient is doing a whole lot better. There has been some dilutional anemia. We will keep an eye on that. We will drop the fluids since she does not look overly dehydrated now. We will continue with the p.o. steroids. We will also start the patient on a GI soft diet with low salt and see how she does today. We anticipate discharging her tomorrow while she has been seen by her regular GI. cc: Guillermo Morin MD [facility]
[2016-06-06] MEDS: VITAMIN D PO SCH (10:59)
--- NOTE | 2016-06-06 13:11 | PROGRESS NOTE ---
DATE: 06/06/2016 SUBJECTIVE: Patient is resting comfortably today. Yesterday when she started soft diet she had postprandial abdominal burning and abdominal pain. She had done well since yesterday when we switched her diet back to liquid diet. She however continues to have loose bowel movements although the frequency has improved. She continues to have some blood-tinged stool. She denies any clots. She has not had any abdominal pain so far today. We have increased her diet back to GI soft diet and will observe. In the meantime continue prednisone 30 mg every day as well as proton pump inhibitor. PLAN: The plan is to add different mesalamine or find immune modulator or biologics to help her treat the ulcerative colitis. Dr. Wick will be back on case tomorrow. Further plans made according to his suggestions. cc: Sean Vila MD
[2016-06-07] MEDS: PRILOSEC PO SCH (06:03)
[2016-06-07] MEDS: BENTYL PO SCH ×2 (06:03→11:34)
[2016-06-07 08:05] LABS: BASO% 0.3 % (0.0-0.8); EOS# 0.05 X1000 (0.0-0.7); EOS% 0.8 % (0.0-10.0); HEMATOCRIT 29.6 % (37.0-47.0); HEMOGLOBIN 9.3 g/dL (12.0-16.0); IMM GRAN# 0.07 X1000 (0.0-0.04); IMM GRAN% 1.1 % (0.0-0.5); LYMPH# 1.26 X1000 (1.2-3.4); LYMPH% 19.1 % (20.5-51.1); MANUAL DIFF NEEDED? YES; MCH 30.3 PG (27-31); MCHC 31.4 g/dL (33-37); MCV 96.4 FL (81-99); MONO# 0.76 X1000 (0.11-0.59); MONO% 11.5 % (1.7-9.3); MPV 8.5 FL (7.4-10.4); NEUT% 67.2 % (42.2-75.2); PLT 345 X1000 (130-400); RBC 3.07 XMIL (4.2-5.4)
[2016-06-07 08:15] LABS: BANDS 12 % (0-1); LYMPHS 22 % (21-51); MONO 10 % (1-9)
[2016-06-07 08:38] VITALS: BP 105/61
[2016-06-07 08:43] LABS: AGAP 13; BUN 4 mg/dL (8-22); CALCIUM 7.4 mg/dL (8.8-10.2); CHLORIDE 102 mmol/L (98-107); COSMO 269; POTASSIUM 3.5 mmol/L (3.5-5.1); SODIUM 137 mmol/L (136-145); TCO2 22 mmol/L (25-35)
[2016-06-07] MEDS ORDERED: PREDNISONE PO SCH (09:00)
[2016-06-07] MEDS: VITAMIN D PO SCH (09:52)
[2016-06-07] MEDS: MYCOSTATIN SUSP PO SCH (09:53)
[2016-06-07] MEDS: NS 1,000 ML IV SCH (09:53)
[2016-06-07] MEDS ORDERED: LEVAQUIN PO SCH (10:30)
[2016-06-07] MEDS ORDERED: VITAMIN D PO ONE (11:46)
--- NOTE | 2016-06-07 19:51 | PROGRESS NOTE ---
DATE: 06/07/2016 PRIMARY CARE PROVIDER: Dr. Judson Wolfe. SUBJECTIVE: The patient has a known history of severe ulcerative colitis. This is the 4th admission in the last 2 months. She continues to have partial response with oral steroids. In fact, when she presented to the hospital she was given an IV dose of Solu- Medrol and at that time she was on prednisone 30 mg. According to the patient, she was noticing increasing bowel frequency with increasing blood in the stools, felt weak and tired. In the hospital she was noted to have a UTI. Today she feels slightly better. She has a decreasing amount of blood in the stools. She had 2 bowel movements today. She was able to take 70% her meal. Her hemoglobin and hematocrit are stable. She is a Jehovah Witness and she is on chronic iron treatment. She denies any fevers, rigors, or chills. OBJECTIVE: Vital signs: Temperature 98 degrees, pulse rate of 97, respiratory rate 18, blood pressure 105/61, saturating 100% on room air. Body weight of 133 pounds, BMI 21 kg/m2. General Appearance: Moderately built, moderately nourished, lying in bed, in no acute distress. HEENT: Pale conjunctivae. No icterus. Pupils equal, react to light. Neck: Supple. Chest: Decreased air entry. Cardiac: Regular rate and rhythm. No murmur. Abdomen: Discomfort in the periumbilical region. No rebound or guarding. Bowel sounds are noted. No hepatosplenomegaly. Extremities: No cyanosis, clubbing. Bilateral lower extremity edema noted. Neurologic: Alert, awake, oriented. LABS: Hemoglobin and hematocrit are 9.3 and 29.6, white count of 6.5, platelet count of 345,000, MCV of 96.4. INR 1.12, PT of 11.8, PTT of 29.6. Sodium 137, potassium 3.5, chloride 102, bicarb 22, anion gap 13, BUN of 4, creatinine 0.3, glucose of 63, calcium 7.9, phosphorus 3.4, magnesium 1.8. CRP 37.6. Pre-albumin of 9.8. Vitamin D of 6.3. Albumin of 2.9, AST 6, ALT 8, total protein 5.7. Stool studies C. difficile toxin is negative. C. difficile antigen is negative. Stool for white cells is many. Stool culture preliminary , no enteric pathogen. Urine culture showing Klebsiella pneumoniae which is sensitive to Levaquin. Stool for occult blood was positive. IMAGING: She had a CT of the abdomen and pelvis done on 06/05 which showed persistent colitis finding. Actually slightly less pronounced than the prior exam. No change in large left kidney. Fatty infiltration of the liver. Renal ultrasound done on 06/05/2016 showed normal renal ultrasound. IMPRESSIONS AND PLAN: 1. Ulcerative colitis, srivastava colitis diagnosed on 04/26/2016 with exacerbation. At this moment we will continue her on prednisone 30 mg daily which is helping control her symptoms, mesalamine 800 mg p.o. t.i.d. She cannot afford her medications. She does not have insurance so we gave her some samples from the clinic on her last visit a few days ago. 2. We will continue on Iron-C 1 capsule b.i.d. 3. She will continue on Centrum Silver 1 capsule p.o. b.i.d. 4. We will keep her on gastrointestinal prophylaxis with Prilosec 20 mg daily as she is on steroids. 5. The patient will be started on Levaquin 500 mg once daily for 7 days for urinary tract infection. 6. The patient was encouraged to increase her calorie intake and take Ensure 3 times a day and also take probiotics in the form of Activa twice daily. 7. The patient was instructed to follow up with us in 1 week of discharge. If the patient continues to have worsening symptoms she was instructed to come back to the hospital. The patient was seen by the surgeon, Dr. Topete, and if her colitis fails to respond then we may have to strongly consider starting her on Remicade or Humira if medical assistance is worked out. The family is trying to arrange her assistance so that we can help her get those medications. We will continue to support her with medications samples from our office. Surgery has been on board and will be on standby and will use them as needed. 8. The above plan was discussed with the patient and the family at bedside. All questions were answered. cc: MD Dr. Efrem Kerr MD [facility]
--- NOTE | 2016-06-08 07:00 | DISCHARGE SUMMARY ---
ADMISSION DATE: 06/05/2016 DISCHARGE DATE: 06/07/2016 CONSULTATIONS: 1. Dr. Wilfrido Topete with general surgery. 2. Dr. Vila with gastroenterology. PERTINENT PROCEDURES: Abdomen and pelvis CT showed a persistent colitis. Findings are actually less pronounced than prior exam. No change in enlarged left ovary. Fatty infiltration of the liver. DISCHARGE DIAGNOSES: 1. Ulcerative colitis flare, improved. Patient will remain on prednisone, and will follow up with Dr. Wick. 2. Dehydration, improved. 3. Hyponatremia, stable. 4. Bandemia, improved. 5. Vitamin D deficiency. Continue with supplementation. HOSPITAL COURSE: Ms. Echols is a 46-year-old female with a past medical history of ulcerative colitis, well-known to our service for many admissions. She was recently discharged on June 01 for the same condition, and was admitted twice in April for the same diagnosis. The last time she was here she was given antibiotics, as well as Icar-C, to be taken for 6 months. The patient reports that 3 days prior to her admission she started noticing loose stools and some bloody stools. She reports between 5 and 10 times bloody stools, with [id number] abdominal pain, mostly located in the periumbilical area and epigastric area. She reported nausea after she vomited once daily for 3 days. The patient reported since January she started having these episodes of ulcerative colitis flare-up. She has lost a total of 60 pounds unintentionally. Patient was admitted with a GI consult. She was started on IV steroids, as well as Protonix. Patient is anemic, however she is a Jehovah Witness, so she would not receive any blood transfusions. She is supposed to see Dr. Pickard in the office next week. Dr. Topete of general surgery also saw the patient. There was no indication for any surgical intervention. It was believed that the patient's symptoms have gotten worse because of her mesalamine itself. She has been advised to stay on her prednisone every day. She was started on a GI soft diet. She has tolerated that well. The patient is being discharged back home today. Clinically, she is improved. Patient refers to doing a whole lot better. Denied any pain in the abdomen. VITAL SIGNS: Temperature is 98 degrees, heart rate 97, respirations 18, blood pressure 105/61, O2 is 100% on room air. DISCHARGE DIET: GI soft. Advance as tolerated. DISCHARGE MEDICATIONS: 1. Vitamin D 1000 units p.o. daily. 2. Centrum 1 each p.o. b.i.d. 3. Prilosec 40 mg p.o. daily. 4. Prednisone 30 mg p.o. daily. FOLLOWUP: Patient will need to follow up with Dr. Wick on 06/14/2016 at 1:45, as well as her PCP, Dr. Judson Wolfe. She will need to keep her previous appointments with Dr. Pickard, as well as ROLLER OPERATOR, Dr. Lomas, for a previous cyst on her ovaries from her last admission. Patient can return to the ED for any worsening of symptoms. DISCHARGE TIME: 30 minutes. Dictated by NASIM Zee for Guillermo Morin MD cc: MD Judson Kerr MD
--- NOTE | 2016-06-16 19:08 | PROVIDER DOCUMENTATION ---
This chart was entered by Aamir Pedroza Scribe, acting as scribe for Wilfrido Richardson MD. HPI-Abdominal Pain/GI Problem - General Chief Complaint: Rectal Bleeding Stated Complaint: GENERAL Time Seen by Provider: 06/05/16 00:14 Source: patient Allergies/Adverse Reactions: Patient Allergies Allergy/AdvReac Type Severity Reaction Status Date / Time No Known Allergies Allergy Verified 06/04/16 23:31 Home Medications: Home Medication List Medication Instructions Recorded Confirmed Last Taken Type Multivitamins/Minerals [Centrum 1 each PO BID #0 tablet 05/07/16 06/04/16 Rx Silver] Omeprazole [Prilosec] 20 mg PO DAILY 06/04/16 06/04/16 06/04/16 History Cholecalciferol (Vit D3) [Vitamin 1,000 unit PO DAILY #60 tablet 06/07/16 Unknown Rx D3] Omeprazole [Prilosec] 40 mg PO DAILY@0700 #60 capsule 06/07/16 Unknown Rx Prednisone 30 mg PO DAILY #10 tablet 06/07/16 Unknown Rx - History of Present Illness-ABD Nature of Presenting Problems: Pt is a 46 yof who presents to ER with CC of N/V/hematochezia. Pt has hx of UC and has been admitted multiple times for same sxs. Pt reports that tonight, she had an episode of hematochezia and thought she saw glass in her stool. Pt reports that on closer inspection, she noticed that the "glass" was the shell of one of her rx, which pt reports was cutting her as she was having her bm. Pt reports that she has been unable to eat/drink for the past couple of days an believes she may be dehydrated. Abdominal Pain Onset Location: reports: generalized abdomen Pain Radiation: reports: no radiation Quality of Pain: reports: cramping Severity in ED: reports: severe Onset/Duration: reports: 2 days ago Timing: reports: still present Modifying Factors: worse with: eating Associated Symptoms: reports: diarrhea, fatigue, loss of appetite, nausea, vomiting, weakness, trouble walking. denies: anxiety, arm pain, back/neck pain , chest pain, constipation, cough, diaphoresis, dizziness, EENT symptoms, fever/ chills, genitourinary problems, headaches, heartburn, joint pain, malaise, muscle aches, sinus congestion/drainage, rash, seizure, shortness of breath, sensory/motor loss, pain with inspiration, swelling/mass in abdomen, syncope Last BM: this evening Dark Stools Present?: reports: bright red blood Rectal Bleeding: reports: bleeding without stool Rectal Pain: reports: none Emesis Description: reports: other (food particles) Review of Systems - Adult - REVIEW OF SYSTEMS - ADULT Constitutional: reports: fatique, weight loss. denies: chills, fever, night sweats, weight gain Eyes: reports: no symptoms reported Ears, Nose, Mouth & Throat: reports: no symptoms reported Cardiovascular: reports: no symptoms reported Respiratory: denies: chronic cough, cough, dyspnea on exertion, excessive sputum production, hemoptysis, pleurisy, shortness of breath, wheezing Gastrointestinal: reports: abdominal pain, diarrhea, nausea, poor appetite, rectal bleeding, vomiting. denies: hematemesis, constipation, difficulty swallowing, frequent heartburn Genitourinary: reports: no symptoms reported Musculoskeletal: reports: muscle weakness. denies: bone pain, back pain, frequent leg cramps, joint pain, joint swelling, muscle aches, neck pain Integumentary: reports: no symptoms reported Neurological: reports: no symptoms reported Psychiatric: reports: no symptoms reported Endocrine: reports: no symptoms reported Hematologic/Lymphatic: reports: no symptoms reported Allergic/Immunologic: reports: no symptoms reported All Other Systems: Reviewed and Negative Past History - Adult - PAST MEDICAL HISTORY-ADULT Review of Records: reports: Nursing Assessment Review, Medications Reviewed - IMMUNIZATION STATUS Childhood Immunizations: See Nurse Assessment Flu Vaccine: See Nurse Assessment - FAMILY HISTORY Family History: reviewed, not pertinent Physical Exam-General - PHYSICAL EXAM-ADULT Initial Vital Signs Reviewed: Yes - CONSTITUTIONAL General Appearance: appears well, alert, moderate distress, thin, lethargic. negative: no apparent distress, mild distress - EYES Eyes: PERRL/EOMI, pink conjunctivae, FUN - HEAD, EARS, NOSE, MOUTH & THROAT HENMT: normocephalic/atraumatic, moist mucous membranes, normal ENT inspection, TMs normal, pharynx normal - NECK Neck: non-tender, full range of motion, supple, normal inspection. negative: C- spine tenderness, limited range of motion, lymphadenopathy - RESPIRATORY Respiratory: chest non-tender, lungs clear, normal breath sounds, no pleuratic chest pain, no respiratory distress, no accessory muscle use. negative: respiratory distress, decreased breath sounds, accessory muscle use, wheezing - CARDIOVASCULAR Cardiovascular: normal peripheral pulses, regular rate, rhythm. negative: bradycardia, tachycardia, irregularly irregular - GASTROINTESTINAL (ABDOMEN) Abdominal Exam: normal bowel sounds, non tender, soft, no organomegaly, no pulsatile mass. negative: distended, guarding, rigid, rebound, tenderness - MUSCULOSKELETAL Extremity: normal range of motion, non-tender, normal gait, normal inspection, no pedal edema, no calf tenderness, normal capillary refill. negative: deformity, erythema, inflammation, swelling, tenderness - SKIN Integumentary: normal color, normal turgor, warm/dry, ecchymosis. negative: abrasion(s), diaphoresis, erythema, laceration(s), swelling, tenderness, warm - NEUROLOGIC Neurologic: hand stone polisher II-XII nml as tested, grossly normal, no motor/sensory deficits . negative: facial droop, focal weakness, motor weakness, sensory deficit - PSYCHIATRIC Psych/Mental Status: normal thought content, normal thought process, oriented x 3, disheveled, depressed affect. negative: normal mood/affect Progress - PLAN OF CARE/RESULTS Progress/Plan/Lab Results: Vital Signs - 8 hr 06/04/16 21:20 06/05/16 00:00 06/05/16 00:15 Temperature 98.1 F Pulse Rate 109 H 149 H 85 Respiratory Rate 18 15 17 Blood Pressure 102/74 108/68 99/67 O2 Sat by Pulse Oximetry 99 95 Bedside Urine ED: Urine Bedside Start: 06/04/16 21:30 Freq: ORDERED Status: Inactive Activity Type Activity Date Activity User E-Sign Co-Sign Detail Recorded Client Recorded Date Recorded By Edit Status 06/05/16 00:04 [id number] Active=>Inactive [id number] 06/05/16 00:04 [id number] Laboratory Results - last 24 hr 06/04/16 06/04/16 06/04/16 23:40 23:40 23:40 WBC 8.36 RBC 3.71 L Hgb 11.6 L Hct 35.0 L MCV 94.3 MCH 31.3 H MCHC 33.1 RDW Std Deviation 20.3 H Plt Count 372 MPV 8.3 Immature Gran % (Auto) 0.8 H Neut % (Auto) 65.6 Lymph % (Auto) 20.7 [place] % (Auto) 12.3 H Eos % (Auto) 0.4 Baso % (Auto) 0.2 Immature Gran # (Auto) 0.07 H Neut # (Auto) 5.48 Lymph # (Auto) 1.73 [place] # (Auto) 1.03 H Eos # (Auto) 0.03 Baso # (Auto) 0.02 Sodium 130 L Potassium 4.1 Chloride 91 L Carbon Dioxide 25 Anion Gap 14 BUN 8 Creatinine 0.4 L Estimated GFR/1.73 m2 > 60 BUN/Creatinine Ratio 20 Glucose 88 Calculated Osmolality 259 Calcium 8.5 L Total Bilirubin 0.49 AST 6 L ALT 8 L Alkaline Phosphatase 69 Total Protein 5.7 L Albumin 2.9 L Globulin 2.8 Albumin/Globulin Ratio 1.0 Serum , Qual NEGATIVE Orders Category Date Time Status ED: Urine Bedside ORDERED Care 06/04/16 21:30 Inactive Saline Loc NOW Care 06/04/16 21:30 Active CBC WITH ELECTRONIC DIFF [HEME] Stat Lab 06/04/16 23:40 Completed COMPREHENSIVE METABOLIC PANEL [CHEM] Stat Lab 06/04/16 23:40 Completed OCCULT BLOOD SCREENING [STOOL] Stat Lab 06/04/16 21:30 Uncollected TEST-SERUM [PREG] Stat Lab 06/05/16 00:03 Completed PROTIME WITH INR [COAG] Stat Lab 06/04/16 23:40 Received PTT [COAG] Stat Lab 06/04/16 23:40 Received URINALYSIS W/POSS RFLX CULT-1 [URINALYSIS] Stat Lab 06/04/16 21:30 Uncollected Result Diagrams: 06/07/16 05:20 06/07/16 05:20 Departure - Departure Time of Disposition Decision: 00:43 DIAGNOSIS: Ulcerative colitis Disposition: ADMITTED INPATIENT 09 Certified Medical Emergency: Emergent Condition: Stable - Critical Care Note This patient required my direct & personal management of CC.: Yes Total Time (mins): 30 Critical Care Statement: This patient required my direct personal management to treat or rule out processes, the absence of which, could potentiallly result in sudden, clinically significant life or limb threatening deterioration. This chart was documented by the indicated scribe, (Aamir Pedroza Scribe) and accurately reflects the services I performed and decisions made by me, Wilfrido Richardson MD, as attested by the provider's signature.
== END 2016-06-07 12:05 | disposition home or self-care (01) ==
LOC: ED 20:50 → SUATTDRO 06-05 04:39 → EDIPHOLD 06-05 04:39 → 4N 06-05 04:56
PROVIDERS: ATTEND Internal Medicine